=== PATIENT | male | born 1975 | race Caucasian/White ===

== ENCOUNTER 2022-12-30 12:41 | Inpatient (IN) | payer SELFPAY ==
[~2022-12-30] VITALS: Ht 180.3 cm; Wt 78.3 kg
[2022-12-30] MEDS ORDERED: fentaNYL INJECTION 100 MCG/2 ML VIAL IVP ONE (13:45)
--- NOTE | 2022-12-30 13:49 | ED Abdominal Pain ---
General Chief Complaint: Abdominal/GI Problems Stated Complaint: BACK PAIN Nursing Triage Note: PATIENT C/O RUQ AND MID BACK PAIN THAT STARTED LAST NIGHT WITH WORSENING THIS AM. PATIENT DENIES ANY FALLS OR INJURY TO BACK. PATIENT DENIES ANY NAUSEA OR VOMITING. PATIENT C/O PAIN WITH DEEP BREATH. PATIENT DENIES ANY Hx. OF BLOOD CLOTS. PATIENT STATES HE DOES HAVE A Hx. OF GERD, BUT DENIES TAKING ANY MEDICATION FOR THAT CURRENTLY. Source of Information: Patient Exam Limitations: No Limitations (CASTRO MILLER APRN) History of Present Illness Date Seen by Provider: Dec 30, 2022 Time Seen by Provider: 13:15 Initial Comments 47-year-old male presents to the ER with complaint of right upper quadrant abdominal pain and right flank pain starting last night before dinner. He reports the pain is worse when he takes a deep breath. Denies any injury to this area. Reports shortness of air due to having difficulty taking deep breaths. He denies fevers, chest pain, nausea, vomiting, dysuria. Last bowel movement was 3 to 4 days ago. Patient reports this is normal for him. He reports history of acid reflux, but states that he has not had issues with it for many years. He has not had any abdominal surgeries. (CASTRO MILLER APRN) Allergies and Home Medications Allergies Coded Allergies: No Known Drug Allergies (Unverified , 12/30/22) Patient Home Medication List Home Medication List Reviewed: Yes (CASTRO MILLER APRN) No Active Prescriptions or Reported Meds Review of Systems Review of Systems Constitutional: see HPI (CASTRO MILLER APRN) Past Wylodct-Szqepo-Llpsgx Hx Patient Social History Tobacco Use?: Yes Tobacco type used: Cigarettes Smoking Status: Current Everyday Smoker Use of E-Cig and/or Vaping dev: No Substance use?: No Alcohol Use?: No (CASTRO MILLER APRN) Past Medical History Surgery/Hospitalization HX: BKA-Lt. (CASTRO MILLER APRN) Physical Exam Vital Signs Capillary Refill : (CASTRO MILLER APRN) Height/Weight/BMI Height: '" Weight: lbs. oz. kg; 23.00 BMI Method: General Appearance: WD/WN, mild distress Neck: supple, normal inspection Respiratory: lungs clear, normal breath sounds, no respiratory distress, no accessory muscle use Cardiovascular: regular rate, rhythm Gastrointestinal: normal bowel sounds, soft, tenderness (Right upper quadrant), other (Positive Gill sign) Extremities: normal range of motion, normal inspection (Left below the knee amputation) Back: normal inspection, no vertebral tenderness; No CVA tenderness (R); CVA tenderness (L), other (No tenderness with palpation of the back) Neurologic/Psychiatric: alert, normal mood/affect Skin: normal color, warm/dry (CASTRO MILLER TIRE SETTER) Focused Exam Lactate Level 12/30/22 16:40: Lactic Acid Level 0.75 (KAYLIN FLOOD DO) Lactic Acid Level Laboratory Tests Test 12/30/22 16:40 Lactic Acid Level 0.75 MMOL/L (0.50-2.00) (KAYLIN FLOOD DO) Progress/Results/Core Measures Results/Orders Lab Results Laboratory Tests Test 12/30/22 13:40 12/30/22 16:09 12/30/22 16:40 Range/Units White Blood Count 27.8 H 4.3-11.0 10^3/uL Red Blood Count 5.47 4.30-5.52 10^6/uL Hemoglobin 14.9 13.3-17.7 g/dL Hematocrit 45 40-54 % Mean Corpuscular Volume 82 80-99 fL Mean Corpuscular Hemoglobin 27 25-34 pg Mean Corpuscular Hemoglobin Concent 33 32-36 g/dL Red Cell Distribution Width 14.3 10.0-14.5 % Platelet Count 311 130-400 10^3/uL Mean Platelet Volume 10.3 9.0-12.2 fL Immature Granulocyte % (Auto) 1 % Neutrophils (%) (Auto) 86 H 42-75 % Lymphocytes (%) (Auto) 8 L 12-44 % Monocytes (%) (Auto) 6 0-12 % Eosinophils (%) (Auto) 0 0-10 % Basophils (%) (Auto) 0 0-10 % Neutrophils # (Auto) 23.8 H 1.8-7.8 10^3/uL Lymphocytes # (Auto) 2.1 1.0-4.0 10^3/uL Monocytes # (Auto) 1.6 H 0.0-1.0 10^3/uL Eosinophils # (Auto) 0.0 0.0-0.3 10^3/uL Basophils # (Auto) 0.1 0.0-0.1 10^3/uL Immature Granulocyte # (Auto) 0.2 H 0.0-0.1 10^3/uL Neutrophils % (Manual) 84 % Lymphocytes % (Manual) 7 % Monocytes % (Manual) 6 % Band Neutrophils 3 % Blood Morphology Comment NORMAL D-Dimer 0.45 0.00-0.49 UG/ML Sodium Level 133 L 135-145 MMOL/L Potassium Level 4.2 3.6-5.0 MMOL/L Chloride Level 97 L 98-107 MMOL/L Carbon Dioxide Level 27 21-32 MMOL/L Anion Gap 9 5-14 MMOL/L Blood Urea Nitrogen 13 7-18 MG/DL Creatinine 1.01 0.60-1.30 MG/DL Estimat Glomerular Filtration Rate 93 BUN/Creatinine Ratio 13 Glucose Level 122 H 70-105 MG/DL Calcium Level 9.9 8.5-10.1 MG/DL Corrected Calcium 9.5 8.5-10.1 MG/DL Magnesium Level 1.9 1.6-2.4 MG/DL Total Bilirubin 1.1 H 0.1-1.0 MG/DL Aspartate Amino Transf (AST/SGOT) 21 5-34 U/L Alanine Aminotransferase (ALT/SGPT) 30 0-55 U/L Alkaline Phosphatase 121 40-136 U/L Troponin I < 0.028 <0.028 NG/ML B-Type Natriuretic Peptide 11.7 <100.0 PG/ML Total Protein 9.0 H 6.4-8.2 GM/DL Albumin 4.5 3.2-4.5 GM/DL Lipase 12 8-78 U/L Urine Color YELLOW Urine Clarity CLEAR Urine pH 6.0 5-9 Urine Specific [place] 1.020 1.016-1.022 Urine Protein 2+ H NEGATIVE Urine Glucose (UA) NEGATIVE NEGATIVE Urine Ketones NEGATIVE NEGATIVE Urine Nitrite NEGATIVE NEGATIVE Urine Bilirubin NEGATIVE NEGATIVE Urine Urobilinogen 1.0 < = 1.0 MG/DL Urine Leukocyte Esterase 1+ H NEGATIVE Urine RBC (Auto) 2+ H NEGATIVE Urine RBC 5-10 H /HPF Urine WBC 5-10 H /HPF Urine Squamous Epithelial Cells RARE /HPF Urine Crystals NONE /LPF Urine Bacteria TRACE /HPF Urine Casts NONE /LPF Urine Mucus NEGATIVE /LPF Urine Culture Indicated YES Lactic Acid Level 0.75 0.50-2.00 MMOL/L (KAYLIN FLOOD DO) Micro Results Microbiology 12/30/22 Blood Culture - Final, Complete Staphylococcus aureus See Comments 12/30/22 Blood Culture - Final, Complete Staphylococcus aureus See Comments 12/30/22 Urine Culture - Final, Complete Staphylococcus aureus Mixed Bacterial Pau (KAYLIN FLOOD DO) Blood Pressure Mean: 97 Progress Progress Note : Progress Note Patient seen and evaluated, resting in bed, mild distress. Based on exam and symptoms, work-up initiated including CBC, CMP, lipase, magnesium, D-dimer, UA, chest x-ray, ultrasound gallbladder. IV fluids and fentanyl ordered. 1500 labs, ultrasound, x-ray reviewed. CBC shows elevated WBC 27.8. Neutrophil elevated 23.8. CMP shows slightly decreased sodium 133, slightly decreased chloride 97, total bilirubin slightly elevated 1.1. AST and ALT normal. Total protein elevated 9.0. Lipase normal. D-dimer normal 0.45. Urinalysis shows 1+ leukocytes, 2+ RBCs, 5-10 WBCs, trace bacteria. Chest x-ray shows no definite acute abnormality, but does show pulmonary vascularity at the upper limits of normal. Gallbladder ultrasound shows contracted gallbladder likely due to nonfasting state , no cholelithiasis or biliary obstruction. Benign simple cyst in the upper pole of the right kidney. Patient still having significant pain, appears to be worse than when he arrived. Patient reports difficulty breathing due to pain. Dilaudid ordered. Troponin and BNP added on. CT angio chest, abdomen, and pelvis ordered. [address] of the chest shows area of consolidation in the right upper lobe likely pneumonia. Also shows multiple micronodular densities in the right upper lobe. They recommend 3-month follow-up. The aorta is normal. There is a large amount of air and stool throughout the colon likely due to constipation as reported by the patient. Also noted is a benign-appearing renal cyst. No renal or ureteral calculi noted. I called and spoke with Dr. Encarnacion due to patient's significant right upper quadrant pain and elevated white count. We agree that elevated white count and pain may be related to pneumonia rather than gallblad jill, but Dr. Encarnacion would like to see patient as an outpatient. Patient has required another dose of Dilaudid. We have been unable to control his pain. Due to uncontrolled pain, pneumonia and elevated white count, I called and spoke with Dr. Calero, hospitalist, for admission. She agrees to admit patient. She would like me to place admission orders. I have ordered azithromycin and Rocephin. I also ordered a second liter of IV fluids as well as Colace and a suppository for patient's constipation. Pain may be related to constipation, and narcotic pain medications may contribute to this. (CASTRO MILLER APRN) Initial ECG Impression Date: Dec 30, 2022 Initial ECG Impression Time: 15:10 Initial ECG Rate: 106 Initial ECG Rhythm: S.Tach Initial ECG Intervals: Normal Initial ECG Impression: Normal Initial ECG Comparisson: No Previous ECG Available (CASTRO MILLER APRN) Diagnostic Imaging Diagonstic Imaging: Xray Plain Films/CT/US/NM/MRI: chest Comments [facility], [place] NAME: HAWA ENAMORADO [facility] REC#: [id number] PT STATUS: REG ER : 1975 PHYSICIAN: CASTRO MILLER APRN ADMIT DATE: 12/30/22/ER Signed Date of Exam:12/30/22 CHEST 1 VIEW, AP/PA ONLY INDICATION: Chest pain. TECHNIQUE: Single AP view of chest is obtained. FINDINGS: Heart size is within normal limits. Pulmonary vascularity is at the upper limits of normal. There is no consolidation, pneumothorax or pleural fluid. IMPRESSION: No definite acute abnormality, although pulmonary vascularity is at the upper limits of normal. Dictated by: Dictated on workstation # [id number] Dict: 12/30/22 1402 Trans: 12/30/22 1434 [id number] Interpreted by: CESAR ROBERTS MD Electronically signed by: CESAR ROBERTS MD 12/30/22 1434 Diagonstic Imaging: Ultrasound Plain Films/CT/US/NM/MRI: abdomen Comments [facility], [facility] [place], [place] NAME: HAWA ENAMORADO [facility] REC#: [id number] PT STATUS: REG ER : 1975 PHYSICIAN: CASTRO MILLER APRN ADMIT DATE: 12/30/22/ER Signed Date of Exam:12/30/22 US GALLBLADDER [id number] PROCEDURE: US Gallbladder. TECHNIQUE: Multiple real-time grayscale images were obtained over the right upper quadrant in various projections. INDICATION: Right upper quadrant pain. COMPARISON: None available. FINDINGS: The liver is normal in size and echogenicity. There is no focal hepatic mass. The main portal vein is patent with antegrade flow. Gallbladder is contracted without stones or sludge. No pericholecystic fluid or significant gallbladder wall thickening. The common bile duct measures up to 0.5 cm in diameter. No intrahepatic biliary dilation. The visualized portions of the pancreas are normal. Portions of the head and tail are obscured by overlying bowel gas. The right kidney is normal in size. No hydronephrosis, shadowing calculi, or suspicious mass lesion. Benign anechoic cyst is present in the upper pole the right kidney measuring up to 6 cm. IMPRESSION: 1. Contracted gallbladder is likely due to nonfasting state. No cholelithiasis or biliary obstruction. 2. Benign simple cyst upper pole of the right kidney. Dictated by: Dictated on workstation # [id number] Dict: 12/30/225 Trans: 12/30/221455 [facility] [id number] Interpreted by: JAYME DOMINGO MD Electronically signed by: JAYME DOMINGO MD 12/30/221455 Diagonstic Imaging: CT Plain Films/CT/US/NM/MRI: chest, abdomen, pelvis Comments [facility], [place] NAME: HAWA ENAMORADO [facility] REC#: [id number] PT STATUS: REG ER : 1975 PHYSICIAN: CASTRO MILLER APRN ADMIT DATE: 12/30/22/ER Draft Date of Exam:12/30/22 CT ANGIO CHST/ABD/PELV W PROCEDURE: CT angiography of the chest with contrast and CT abdomen and pelvis with contrast. TECHNIQUE: Multiple contiguous axial images were obtained through the chest, abdomen and pelvis after administration of intravenous contrast. 3D MIP reconstructed CT angiography acquisitions of the aorta were then performed. Auto Exposure Controls were utilized during the CT exam to meet ALARA standards for radiation dose reduction. INDICATION: Right flank pain. Right upper quadrant abdominal pain. Shortness of air. Mid chest pain with radiation to the back. COMPARISON: None. FINDINGS: CTA CHEST: At the level of the pulmonary arterial trunk, the ascending thoracic aorta measures 3.8 cm and the descending thoracic aorta measures 2.4 cm. By NASCET criteria, there is no focal significant stenosis. No significant atherosclerotic disease is seen. There is no dissection. Pulmonary arteries are suboptimally opacified to assess for pulmonary emboli. Heart size is within normal limits. There is no large pericardial effusion. No pathologically enlarged or morphologically abnormal adenopathy is seen within the mediastinum, asuncion, nor axillae. Evaluation of the lung rojas is degraded by motion artifact. There is, however, a focal area of consolidation involving the posterolateral margins of the right upper lobe near the minor fissure. Multiple micronodular densities of the lateral margins of the right upper lobe are also identified. Largest of these measures 9 x 6 mm. Left upper lobe micronodule is also identified and measures 9 mm (image 49, series 2). No large effusion or pneumothorax is seen. Osseous structures show no acute abnormalities. No lytic or blastic bony lesions are seen. CT ABDOMEN: Large amount of air and stool is noted scattered throughout the colon. Small bowel loops are nondilated. Appendix is not well visualized, but there is no secondary evidence of acute appendicitis. Large, but otherwise benign-appearing right renal cyst is noted. Otherwise, the kidneys, adrenal glands, spleen, pancreas, and liver have a normal CT appearance. There is no loculated fluid collection, free fluid, or free air within the abdomen. No abnormal mesenteric or retroperitoneal adenopathy is seen. Indwelling IVC filter is also noted. Osseous structures show no acute abnormalities. CT PELVIS: Urinary bladder is unopacified. No calculi are seen within the urinary bladder. There is no loculated fluid collection, free fluid, or free air. No abnormal adenopathy is seen. Osseous structures show no acute abnormalities. IMPRESSION: 1. No acute abnormality of the thoracic aorta is identified. 2. Focal consolidation of the right upper lobe concerning for pneumonia. 3. Multiple micronodules in the bilateral upper lobes are also identified. Three-month follow-up is advised to ensure stability. 4. Large amount of air and stool throughout the colon. Please correlate for constipation. 5. No other acute abnormality is seen within the abdomen or pelvis. Dictated on workstation # [id number] Dict: 12/30/22 1611 Trans: 12/30/22 1630 [id number] Interpreted by: HEYDI GRIFFIN MD Electronically signed by: (CASTRO MILLER APRN) Departure Communication (Admissions) Time/Spoke to Admitting Phy: 16:44 Dr. Calero, hospitalist, see progress note. Time/Spoke to Consulting Phy: 16:40 Dr. Encarnacion, surgery, see progress note. (CASTRO MILLER APRN) Impression Primary Impression: Pneumonia Additional Impressions: Right upper quadrant abdominal pain Constipation Uncontrolled pain Disposition: ADMITTED INPATIENT Condition: Stable Admissions Decision to Admit Reason: Admit from ER (General) Decision to Admit/Date: Dec 30, 2022 Time/Decision to Admit Time: 16:40 (CASTRO MILLER APRN) Departure-Patient Inst. Referrals: NO,LOCAL PHYSICIAN (PCP/Family) Primary Care Physician Scripts No Active Prescriptions or Reported Meds ATTENDING PHYSICIAN NOTE: I WAS PHYSICALLY PRESENT ER PHYSICIAN, BUT I WAS NOT INVOLVED IN ANY DECISION MAKING OR ANY CARE OF THIS PATIENT, AND I AM NOT COLLABORATING PHYSICIAN. (KAYLIN FLOOD DO) CASTRO MILLER APRN Dec 30, 2022 13:49 KAYLIN FLOOD DO Jan 09, 2023 05:47
[2022-12-30 13:54] LABS: BASOPHILS # (AUTO) 0.1 10^3/uL (0.0-0.1); BASOPHILS % (AUTO) 0 % (0-10); EOSINOPHILS % (AUTO) 0 % (0-10); HEMATOCRIT 45 % (40-54); HEMOGLOBIN 14.9 g/dL (13.3-17.7); LYMPHOCYTES # (AUTO) 2.1 10^3/uL (1.0-4.0); LYMPHOCYTES % (AUTO) 8 % (12-44); MEAN CORPUSCULAR HEMOGLOBIN 27 pg (25-34); MEAN CORPUSCULAR HGB CONC 33 g/dL (32-36); MEAN CORPUSCULAR VOLUME 82 fL (80-99); MEAN PLATELET VOLUME 10.3 fL (9.0-12.2); MONOCYTES # (AUTO) 1.6 10^3/uL (0.0-1.0); MONOCYTES % (AUTO) 6 % (0-12); NEUTROPHILS # (AUTO) 23.8 10^3/uL (1.8-7.8); NEUTROPHILS % (AUTO) 86 % (42-75); PLATELET COUNT 311 10^3/uL (130-400); WHITE BLOOD COUNT 27.8 10^3/uL (4.3-11.0)
[2022-12-30] MEDS ORDERED: NS IV 1000 ML 1,000 ML IV SCH ×2 (14:00→17:00)
[2022-12-30 14:02] LABS: ALBUMIN 4.5 GM/DL (3.2-4.5)
[2022-12-30 14:03] LABS: POTASSIUM 4.2 MMOL/L (3.6-5.0)
[2022-12-30 14:04] LABS: CALCIUM 9.9 MG/DL (8.5-10.1)
--- NOTE | 2022-12-30 14:06 | Diagnostic Imaging Report ---
INDICATION: Chest pain. TECHNIQUE: Single AP view of chest is obtained. FINDINGS: Heart size is within normal limits. Pulmonary vascularity is at the upper limits of normal. There is no consolidation, pneumothorax or pleural fluid. IMPRESSION: No definite acute abnormality, although pulmonary vascularity is at the upper limits of normal. Dictated by: Dictated on workstation # [id number]
[2022-12-30 14:07] LABS: BILIRUBIN,TOTAL 1.1 MG/DL (0.1-1.0)
[2022-12-30 14:09] LABS: CREATININE SERUM 1.01 MG/DL (0.60-1.30)
[2022-12-30 14:11] LABS: MAGNESIUM 1.9 MG/DL (1.6-2.4)
[2022-12-30 14:31] LABS: NEUTROPHILS % (MANUAL) 84 %
[2022-12-30 14:32] LABS: BAND NEUTROPHILS 3 %; LYMPHOCYTES % (MANUAL) 7 %; MONOCYTES % (MANUAL) 6 %; RBC MORPH NORMAL
--- NOTE | 2022-12-30 14:58 | Diagnostic Imaging Report ---
PROCEDURE: US Gallbladder. TECHNIQUE: Multiple real-time grayscale images were obtained over the right upper quadrant in various projections. INDICATION: Right upper quadrant pain. COMPARISON: None available. FINDINGS: The liver is normal in size and echogenicity. There is no focal hepatic mass. The main portal vein is patent with antegrade flow. Gallbladder is contracted without stones or sludge. No pericholecystic fluid or significant gallbladder wall thickening. The common bile duct measures up to 0.5 cm in diameter. No intrahepatic biliary dilation. The visualized portions of the pancreas are normal. Portions of the head and tail are obscured by overlying bowel gas. The right kidney is normal in size. No hydronephrosis, shadowing calculi, or suspicious mass lesion. Benign anechoic cyst is present in the upper pole the right kidney measuring up to 6 cm. IMPRESSION: 1. Contracted gallbladder is likely due to nonfasting state. No cholelithiasis or biliary obstruction. 2. Benign simple cyst upper pole of the right kidney. Dictated by: Dictated on workstation # [id number]
[2022-12-30] MEDS ORDERED: HYDROmorphone INJECTION 2 MG/ML VIAL IV ONE ×3 (15:00→17:45)
[2022-12-30] MEDS ORDERED: IOHEXOL 350 MG/ML 100 ML (OMNIPAQUE 350) VIAL IV ONE (15:15)
[2022-12-30] MEDS ORDERED: NS 100 ML (IVPB) BAG IV ONE (15:15)
[2022-12-30 16:24] LABS: BACTERIA,URINE TRACE /HPF; BILIRUBIN,URINE NEGATIVE (NEGATIVE); CLARITY,URINE CLEAR; COLOR,URINE YELLOW; GLUCOSE, URINE (UA) NEGATIVE (NEGATIVE); KETONES,URINE NEGATIVE (NEGATIVE); LEUKOCYTE ESTERASE ,URINE 1+ (NEGATIVE); NITRITE,URINE NEGATIVE (NEGATIVE); PROTEIN,URINE 2+ (NEGATIVE); SQUAMOUS EPITHELIAL CELL,UR RARE /HPF
--- NOTE | 2022-12-30 16:30 | Diagnostic Imaging Report ---
PROCEDURE: CT angiography of the chest with contrast and CT abdomen and pelvis with contrast. TECHNIQUE: Multiple contiguous axial images were obtained through the chest, abdomen and pelvis after administration of intravenous contrast. 3D MIP reconstructed CT angiography acquisitions of the aorta were then performed. Auto Exposure Controls were utilized during the CT exam to meet ALARA standards for radiation dose reduction. INDICATION: Right flank pain. Right upper quadrant abdominal pain. Shortness of air. Mid chest pain with radiation to the back. COMPARISON: None. FINDINGS: CTA CHEST: At the level of the pulmonary arterial trunk, the ascending thoracic aorta measures 3.8 cm and the descending thoracic aorta measures 2.4 cm. By NASCET criteria, there is no focal significant stenosis. No significant atherosclerotic disease is seen. There is no dissection. Pulmonary arteries are suboptimally opacified to assess for pulmonary emboli. Heart size is within normal limits. There is no large pericardial effusion. No pathologically enlarged or morphologically abnormal adenopathy is seen within the mediastinum, asuncion, nor axillae. Evaluation of the lung rojas is degraded by motion artifact. There is, however, a focal area of consolidation involving the posterolateral margins of the right upper lobe near the minor fissure. Multiple micronodular densities of the lateral margins of the right upper lobe are also identified. Largest of these measures 9 x 6 mm. Left upper lobe micronodule is also identified and measures 9 mm (image 49, series 2). No large effusion or pneumothorax is seen. Osseous structures show no acute abnormalities. No lytic or blastic bony lesions are seen. CT ABDOMEN: Large amount of air and stool is noted scattered throughout the colon. Small bowel loops are nondilated. Appendix is not well visualized, but there is no secondary evidence of acute appendicitis. Large, but otherwise benign-appearing right renal cyst is noted. Otherwise, the kidneys, adrenal glands, spleen, pancreas, and liver have a normal CT appearance. There is no loculated fluid collection, free fluid, or free air within the abdomen. No abnormal mesenteric or retroperitoneal adenopathy is seen. Indwelling IVC filter is also noted. Osseous structures show no acute abnormalities. CT PELVIS: Urinary bladder is unopacified. No calculi are seen within the urinary bladder. There is no loculated fluid collection, free fluid, or free air. No abnormal adenopathy is seen. Osseous structures show no acute abnormalities. IMPRESSION: 1. No acute abnormality of the thoracic aorta is identified. 2. Focal consolidation of the right upper lobe concerning for pneumonia. 3. Multiple micronodules in the bilateral upper lobes are also identified. Three-month follow-up is advised to ensure stability. 4. Large amount of air and stool throughout the colon. Please correlate for constipation. 5. No other acute abnormality is seen within the abdomen or pelvis. Dictated by: Dictated on workstation # [id number]
[2022-12-30] MEDS ORDERED: cefTRIAXone IV/IM 1,000 MG in NS (IVPB) 50 ML 50 ML IV ONE (17:00)
[2022-12-30] MEDS ORDERED: BISACODYL 10 MG SUPPOSITORY PR ONE (17:00)
[2022-12-30] MEDS ORDERED: AZITHROMYCIN INJECTION 500 MG in NS (IVPB) 250 ML 250 ML IV ONE (17:00)
[2022-12-30] MEDS ORDERED: DOCUSATE SODIUM 100 MG CAPSULE PO ONE (17:00)
[2022-12-30] MEDS ORDERED: KETOROLAC INJ 15 MG/ML VIAL IVP ONE (17:45)
[2022-12-30] MEDS ORDERED: ONDANSETRON INJECTION 4 MG/2 ML (SDV) IV PRN (18:15)
[2022-12-30] MEDS: NS IV 1000 ML 1,000 ML IV SCH (18:25)
[2022-12-30 18:26] VITALS: BP 97/74
[2022-12-30 19:19] VITALS: BP 97/74
[2022-12-30] MEDS ORDERED: RT-ALBUTEROL SULF 2.5 MG/3 ML PRE-MIX VIAL INH PRN (19:45)
[2022-12-30 19:51] VITALS: BP 102/59
[2022-12-30] MEDS: DOCUSATE SODIUM 100 MG CAPSULE PO SCH (21:02)
[2022-12-31] VITALS: BP 104/68
[2022-12-31] MEDS: fentaNYL INJECTION 100 MCG/2 ML VIAL IV PRN ×6 (00:10→22:06)
[2022-12-31] MEDS: HYDROmorphone INJECTION 2 MG/ML VIAL IV PRN ×5 (02:01→19:57)
[2022-12-31 04:00] VITALS: BP 102/60
[2022-12-31] MEDS: NS IV 1000 ML 1,000 ML IV SCH ×2 (04:06→14:51)
--- NOTE | 2022-12-31 07:13 | Consultation - Surgery ---
SUDHAKAR PÉREZ 12/31/22 0713: History of Present Illness History of Present Illness Patient Consulted On(raz/time) 12/31/22 07:00 Date Seen by Provider: Dec 31, 2022 Time Seen by Provider: 07:00 History of Present Illness Patient is a 47 year old male with longstanding IV methamphetamine abuse who came into the [facility] ED yesterday with a chief complaint of RUQ and right sided flank pain worse with inspiration. The patient also had not had a BM in 3- 4 days. Labs in the ED were significant for an elevated WBC of 27.8 with neutrophil count of 23.8 and sodium of 133. RUQ ultrasound showed a contracted gallbladder (likely secondary to a non-fasting state), a benign appearing right renal cyst. CT showed a focal consolidation in the upper lobe of the right lung and there were large amounts of air and stool present in the colon, aligning with the patients ongoing constipation. Blood cultures significant for staph aureus bacteremia. Echo was performed that showed normal EF and mild tricuspid valve regurgitation as well as elevated pulmonary artery pressure. This morning when I spoke with him he appeared uncomfortable and is still having pain when he takes a deep breath, though he says his current pain regimen is helping. He still has not had a BM. Otherwise he denies any other symptoms. Allergies and Home Medications Allergies Coded Allergies: No Known Drug Allergies (Unverified , 12/30/22) Patient Home Medication List No Active Prescriptions or Reported Meds Past Oadkefo-Jobmch-Mypsyp Hx Patient Social History Smoking Status: Current Everyday Smoker Alcohol Use?: No Review of Systems-General Constitutional: No fever, No malaise EENTM: No hoarseness, No nose congestion Respiratory: No cough, No hemoptysis Gastrointestinal: RUQ, constipation; No nausea, No vomiting Genitourinary: No dysuria, No hematuria Musculoskeletal: No back pain, No muscle pain Skin: No change in color, No dryness Psychiatric/Neurological: Denies Anxiety, Denies Depressed Physical Exam-General Problems Physical Exam Vital Signs Vital Signs - First Documented 12/30/22 12/30/22 12/30/22 12/30/22 13:26 16:40 17:37 19:19 Temp 36.9 Pulse 99 Resp 16 B/P (MAP) 124/83 (97) Pulse Ox 96 O2 Delivery Room Air O2 Flow Rate 2.00 FiO2 21 Capillary Refill : Less Than 3 Seconds General Appearance: mild distress Respiratory: no respiratory distress, wheezing, expiration Cardiovascular: regular rate, rhythm, no murmur Peripheral Pulses: 2+ Radial Pulses (R), 2+ Radial Pulses (L) Gastrointestinal: non tender, soft Extremities: no pedal edema Skin: normal color, warm/dry Data Review Labs Laboratory Tests 12/30/22 13:40: White Blood Count 27.8H, Red Blood Count 5.47, Hemoglobin 14.9, Hematocrit 45, Mean Corpuscular Volume 82, Mean Corpuscular Hemoglobin 27, Mean Corpuscular Hemoglobin Concent 33, Red Cell Distribution Width 14.3, Platelet Count 311, Mean Platelet Volume 10.3, Immature Granulocyte % (Auto) 1, Neutrophils (%) (Auto) 86H, Lymphocytes (%) (Auto) 8L, Monocytes (%) (Auto) 6, Eosinophils (%) (Auto) 0, Basophils (%) (Auto) 0, Neutrophils # (Auto) 23.8H, Lymphocytes # (Auto) 2.1, Monocytes # (Auto) 1.6H, Eosinophils # (Auto) 0.0, Basophils # (Auto) 0.1, Immature Granulocyte # (Auto) 0.2H, Neutrophils % (Manual) 84, Lymphocytes % (Manual) 7, Monocytes % (Manual) 6, Band Neutrophils 3, Blood Morphology Comment NORMAL, D-Dimer 0.45, Sodium Level 133L, Potassium Level 4.2, Chloride Level 97L, Carbon Dioxide Level 27, Anion Gap 9, Blood Urea Nitrogen 13, Creatinine 1.01, Estimat Glomerular Filtration Rate 93, BUN/Creatinine Ratio 13, Glucose Level 122H, Calcium Level 9.9, Corrected Calcium 9.5, Magnesium Level 1.9, Total Bilirubin 1.1H, Aspartate Amino Transf (AST/SGOT) 21, Alanine Aminotransferase (ALT/SGPT) 30, Alkaline Phosphatase 121, Troponin I < 0.028, B- Type Natriuretic Peptide 11.7, Total Protein 9.0H, Albumin 4.5, Lipase 12 12/30/22 16:09: Urine Color YELLOW, Urine Clarity CLEAR, Urine pH 6.0, Urine Specific [place] 1.020, Urine Protein 2+H, Urine Glucose (UA) NEGATIVE, Urine Ketones NEGATIVE, Urine Nitrite NEGATIVE, Urine Bilirubin NEGATIVE, Urine Urobilinogen 1.0, Urine Leukocyte Esterase 1+H, Urine RBC (Auto) 2+H, Urine RBC 5-10H, Urine WBC 5-10H, Urine Squamous Epithelial Cells RARE, Urine Crystals NONE, Urine Bacteria TRACE, Urine Casts NONE, Urine Mucus NEGATIVE, Urine Culture Indicated YES 12/30/22 16:40: Lactic Acid Level 0.75 Assessment/Plan Assessment/Plan Assessment/Plan Constipation Right upper quadrant pain -likely secondary to combination of pneumonia and constipation -continue pain regimen, consider discontinuing opioid agonists due to ongoing constipation -continue stool softeners/laxatives -continue IV fluids -monitor for change in pain and for BM -HIDA scan Pneumonia Staph Aureus Bacteremia NANCY ENCARNACION DO 12/31/22 1822: History of Present Illness History of Present Illness History of Present Illness Patient is a 47 year old male with ruq abdominal pain. Not felt well for several days. Cough that is productive. Breathing and cough makes worse. Recent history of meth use, Injects. Patient with constipation. WBC at 27.8. Had u/s with contracted gallbladder and cyst on kidney right. CTA chest abd/pelvis: 1. No acute abnormality of the thoracic aorta is identified. 2. Focal consolidation of the right upper lobe concerning for pneumonia. 3. Multiple micronodules in the bilateral upper lobes are also identified. Three-month follow-up is advised to ensure stability. 4. Large amount of air and stool throughout the colon. Please correlate for constipation. 5. No other acute abnormality is seen within the abdomen or pelvis. Allergies and Home Medications Allergies Coded Allergies: No Known Drug Allergies (Unverified , 12/30/22) Patient Home Medication List Home Medication List Reviewed: Yes No Active Prescriptions or Reported Meds Past Tpzutmr-Mnipae-Xuauvx Hx Patient Social History Smoking Status: Current Everyday Smoker Substance type: Methamphetamine Surgeries History of Surgeries: Yes (left bka) Respiratory History of Respiratory Disorde: No Cardiovascular History of Cardiac Disorders: No Neurological History of Neurological Disord: No Genitourinary History of Genitourinary Disor: No Gastrointestinal History of Gastrointestinal Di: No Musculoskeletal History of Musculoskeletal Dis: No Endocrine History of Endocrine Disorders: No HEENT History of HEENT Disorders: No Cancer History of Cancer: No Psychosocial History of Psychiatric Problem: No Integumentary History of Skin or Integumenta: No Reviewed Nursing Assessment Reviewed/Agree w Nursing PMH: Yes Family Medical History Significant Family History: No Pertinent Family Hx Review of Systems-General Constitutional: No fever, No malaise EENTM: No blurred vision, No double vision Respiratory: cough; No hemoptysis Gastrointestinal: RUQ, abdominal pain (RUQ), constipation; No nausea, No vomiting Genitourinary: No dysuria, No hematuria Musculoskeletal: No back pain, No joint pain Skin: No change in color, No change in hair/nails Psychiatric/Neurological: Denies Anxiety, Denies Depressed All Other Systems Reviewed Negative Unless Noted: Yes (Negative excepted noted.) Physical Exam-General Problems Physical Exam General Appearance: WD/WN, no apparent distress (anxious slightly) HEENT: PERRL/EOMI, normal ENT inspection Neck: non-tender, supple Respiratory: chest non-tender, no respiratory distress, no accessory muscle use Cardiovascular: no JVD, tachycardia Gastrointestinal: non tender, soft Rectal: deferred Back: normal inspection, no CVA tenderness Extremities: non-tender, no pedal edema Neurologic/Psychiatric: alert, normal mood/affect, oriented x 3 Skin: normal color, warm/dry Lymphatic: no adenopathy Assessment/Plan Assessment/Plan Assessment/Plan ruq abdominal pain right upper lobe pneumonia constipation staph aureus bacteremita methamphetamine use. antibiotics u/s with gb contracted no gall stones or pericholecystic fluid gallbladder may not be source. Could order HIDA scan to further evaluate in future. pain may be related to constipation and pneumonia. Supervisory-Addendum Brief Verification & Attestation Participated in pt care: history, MDM, physical Personally performed: exam, history, MDM, supervision of care Care discussed with: Medical Student Procedures: n/a Results interpretation: Verified all documentation Verification and Attestation of Medical Student E/M Service A medical student performed and documented this service in my presence. I reviewed and verified all information documented by the medical student and made modifications to such information, when appropriate. I personally performed the physical exam and medical decision making. Nancy Encarnacion, Dec 31, 2022,18:31 SUDHAKAR PÉREZ Dec 31, 2022 07:13 NANCY ENCARNACION DO Dec 31, 2022 18:22
[2022-12-31 07:31] VITALS: BP 105/65
[2022-12-31] MEDS: KETOROLAC INJ 15 MG/ML VIAL IV PRN ×2 (07:46→14:51)
[2022-12-31 07:50] LABS: BASOPHILS # (AUTO) 0.1 10^3/uL (0.0-0.1); BASOPHILS % (AUTO) 0 % (0-10); EOSINOPHILS % (AUTO) 0 % (0-10); HEMATOCRIT 40 % (40-54); HEMOGLOBIN 12.8 g/dL (13.3-17.7); LYMPHOCYTES # (AUTO) 2.1 10^3/uL (1.0-4.0); LYMPHOCYTES % (AUTO) 8 % (12-44); MEAN CORPUSCULAR HEMOGLOBIN 27 pg (25-34); MEAN CORPUSCULAR HGB CONC 32 g/dL (32-36); MEAN CORPUSCULAR VOLUME 85 fL (80-99); MEAN PLATELET VOLUME 10.8 fL (9.0-12.2); MONOCYTES # (AUTO) 1.5 10^3/uL (0.0-1.0); MONOCYTES % (AUTO) 5 % (0-12); NEUTROPHILS # (AUTO) 24.1 10^3/uL (1.8-7.8); NEUTROPHILS % (AUTO) 86 % (42-75); PLATELET COUNT 252 10^3/uL (130-400); WHITE BLOOD COUNT 27.9 10^3/uL (4.3-11.0)
[2022-12-31 07:56] LABS: POTASSIUM 4.4 MMOL/L (3.6-5.0)
[2022-12-31 07:58] LABS: CALCIUM 8.7 MG/DL (8.5-10.1)
[2022-12-31 08:02] LABS: CREATININE SERUM 0.85 MG/DL (0.60-1.30)
[2022-12-31] MEDS: DOCUSATE SODIUM 100 MG CAPSULE PO SCH ×2 (08:36→20:57)
[2022-12-31] MEDS ORDERED: VANCOMYCIN INJECTION 0.1 MG in NS (IVPB) 250 ML 250 ML IV SCH (09:45)
[2022-12-31] MEDS ORDERED: VANCOMYCIN 1500MG/300ML PREMIX IV ONE (10:00)
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
[2022-12-31 11:34] VITALS: BP 96/62
--- NOTE | 2022-12-31 13:21 | Physical Therapy Progress Note ---
Therapy Progress Note Patient declined the need for PT at this time. Patient reports he is independent and up in his w/c. No skilled PT indicated. MARGAUX LEMOS PT Dec 31, 2022 13:21
[2022-12-31 16:38] VITALS: BP 101/58
[2022-12-31] MEDS: cefTRIAXone IV/IM 1,000 MG in NS (IVPB) 50 ML 50 ML IV SCH (17:01)
[2022-12-31] MEDS: AZITHROMYCIN 250 MG TABLET PO SCH (17:01)
[2022-12-31 19:19] VITALS: BP 112/70
[2022-12-31] MEDS: VANCOMYCIN 1250 MG/NS 250 ML PREMIX IV SCH (20:48)
[2022-12-31] MEDS ORDERED: VANCOMYCIN 1 GM/NS 250 ML IVPB IV SCH ×2 (21:00)
[2023-01-01] VITALS (7 sets, daily range): BP systolic 102–147; BP diastolic 54–87
[2023-01-01] MEDS: NS IV 1000 ML 1,000 ML IV SCH ×3 (00:16→16:22)
[2023-01-01] MEDS: HYDROmorphone INJECTION 2 MG/ML VIAL IV PRN ×4 (03:17→20:17)
[2023-01-01 06:51] LABS: HEMATOCRIT 38 % (40-54); HEMOGLOBIN 12.1 g/dL (13.3-17.7); MEAN CORPUSCULAR HEMOGLOBIN 27 pg (25-34); MEAN CORPUSCULAR HGB CONC 32 g/dL (32-36); MEAN CORPUSCULAR VOLUME 85 fL (80-99); MEAN PLATELET VOLUME 10.5 fL (9.0-12.2); PLATELET COUNT 245 10^3/uL (130-400); WHITE BLOOD COUNT 18.1 10^3/uL (4.3-11.0)
[2023-01-01 06:55] LABS: POTASSIUM 3.9 MMOL/L (3.6-5.0)
[2023-01-01 06:56] LABS: CALCIUM 8.4 MG/DL (8.5-10.1)
[2023-01-01 07:00] LABS: CREATININE SERUM 0.76 MG/DL (0.60-1.30)
[2023-01-01] MEDS: fentaNYL INJECTION 100 MCG/2 ML VIAL IV PRN ×3 (07:48→23:39)
--- NOTE | 2023-01-01 07:52 | Progress Note - Surgery ---
AGUILAR KENNEDY 01/01/23 0752: Subjective Date Seen by a Provider: Jan 01, 2023 Time Seen by a Provider: 07:20 Subjective/Events-last exam Pt is laying in bed and his only complaint is the RUQ abdominal pain that he states has been constant and unrelieved by pain medication. No nausea or vomiting. Tolerating food and drink. Still constipated day 6. WBC down to 18.1 from 27.8. Review of Systems General: No Chills, No Night Sweats HEENT: No Head Aches, No Visual Changes Pulmonary: No Dyspnea, No Cough Cardiovascular: No: Chest Pain, Palpitations Gastrointestinal: Abdominal Pain (ruq), Constipation; No: Nausea, Vomiting Genitourinary: No Dysuria, No Frequency Musculoskeletal: No: neck pain, shoulder pain Neurological: No: Weakness, Numbness Focused Exam Lactate Level 12/30/22 16:40: Lactic Acid Level 0.75 Objective Exam Vital Signs Date Time Temp Pulse Resp B/P (MAP) Pulse Ox O2 Delivery O2 Flow Rate FiO2 01/01/23 07:39 36.7 88 18 107/54 (71) 91 Nasal Cannula 2.00 01/01/23 04:55 37.0 81 14 102/64 (77) 93 Room Air 01/01/23 01:00 106 01/01/23 00:13 36.9 87 18 110/62 (78) 94 Room Air 12/31/22 20:30 Room Air 12/31/22 19:19 37.5 95 18 112/70 (84) 93 Room Air 12/31/22 19:00 94 12/31/22 16:38 36.5 69 16 101/58 (72) 92 Room Air 12/31/22 13:00 99 12/31/22 11:34 36.9 95 20 96/62 (73) 93 Room Air 12/31/22 08:00 Room Air I & O 01/01/23 07:00 Intake Total 3350 ml Output Total 1100 ml Balance 2250 ml Capillary Refill : Less Than 3 Seconds General Appearance: No Apparent Distress, Anxious HEENT: TMs Normal, Normal ENT Inspection Neck: Full Range of Motion, Normal Inspection, Non Tender Respiratory: Chest Non Tender, No Accessory Muscle Use, No Respiratory Distress, Crackles, Decreased Breath Sounds Cardiovascular: Regular Rate, Rhythm, No JVD, No Murmur, Normal Peripheral Pulses Peripheral Pulses: 2+ Radial Pulses (R), 2+ Radial Pulses (L) Gastrointestinal: non tender, soft Extremity: Normal Capillary Refill, Normal Inspection, Non Tender, No Calf Tenderness, No Pedal Edema Neurologic/Psychiatric: Alert, Oriented x3, No Motor/Sensory Deficits, Normal Mood/Affect Skin: Normal Color, Warm/Dry Lymphatic: No Adenopathy Results Lab Laboratory Tests 01/01/23 06:39: White Blood Count 18.1H, Red Blood Count 4.49, Hemoglobin 12.1L, Hematocrit 38L, Mean Corpuscular Volume 85, Mean Corpuscular Hemoglobin 27, Mean Corpuscular Hemoglobin Concent 32, Red Cell Distribution Width 14.6H, Platelet Count 245, Mean Platelet Volume 10.5, Sodium Level 133L, Potassium Level 3.9, Chloride Level 105, Carbon Dioxide Level 22, Anion Gap 6, Blood Urea Nitrogen 10, Creatinine 0.76, Estimat Glomerular Filtration Rate 112, BUN/Creatinine Ratio 13, Glucose Level 98, Calcium Level 8.4L Microbiology 12/30/22 Blood Culture - Preliminary, Resulted Probable Staph Aureus See Comments 12/30/22 Urine Culture - Preliminary, Resulted Staphylococcus aureus Assessment/Plan Assessment/Plan Assessment/Plan ruq abdominal pain right upper lobe pneumonia constipation, day 6 staph aureus bacteremita methamphetamine use. antibiotics pain medication continue miralax and docusate for constipation. Increase miralax dose NANCY ENCARNACION DO 01/01/231941: Subjective Subjective/Events-last exam Patient constipated. ABdominal pain different area of abdomen. Cough and working on breathing. WBC down some today. Tolerating diet. Denies n/v fever s weats chills shortness of breath or chest pain at this time. Objective Exam General Appearance: No Apparent Distress, Anxious HEENT: PERRL/EOMI, Normal ENT Inspection Neck: Normal Inspection, Non Tender Respiratory: Chest Non Tender, No Accessory Muscle Use Cardiovascular: Regular Rate, Rhythm, No JVD Gastrointestinal: soft, tenderness (random areas of tenderness on exam) Extremity: Non Tender, No Calf Tenderness, Other (left bka) Neurologic/Psychiatric: Alert, Oriented x3 Skin: Normal Color, Warm/Dry Lymphatic: No Adenopathy Assessment/Plan Assessment/Plan Assessment/Plan ruq abdominal pain right upper lobe pneumonia constipation staph aureus bacteremita methamphetamine use. add MOM to help with constipation continue abx pain control. see if MOM helps use incentive spirometer. Supervisory-Addendum Brief Verification & Attestation Participated in pt care: history, MDM, physical Personally performed: exam, history, MDM, supervision of care Care discussed with: Medical Student Procedures: n/a Results interpretation: Verified all documentation Verification and Attestation of Medical Student E/M Service A medical student performed and documented this service in my presence. I reviewed and verified all information documented by the medical student and made modifications to such information, when appropriate. I personally performed the physical exam and medical decision making. Nancy Encarnacion, Jan 01, 2023,19:41 AGUILAR KENNEDY Jan 01, 2023 07:52 NANCY ENCARNACION DO Jan 01, 2023 19:42
[2023-01-01] MEDS: AZITHROMYCIN 250 MG TABLET PO SCH (09:26)
[2023-01-01] MEDS: DOCUSATE SODIUM 100 MG CAPSULE PO SCH ×2 (09:26→20:17)
[2023-01-01] MEDS: VANCOMYCIN 1250 MG/NS 250 ML PREMIX IV SCH ×2 (09:26→21:38)
[2023-01-01] MEDS ORDERED: MAGNESIUM CITRATE 300 ML BTL PO ONE (09:30)
[2023-01-01] MEDS ORDERED: BISACODYL 10 MG SUPPOSITORY PR PRN (09:30)
--- NOTE | 2023-01-01 10:07 | Progress Note - Hospitalist ---
YANI HOWELL 01/01/23 1007: Subjective HPI/CC On Admission Date Seen by Provider: Jan 01, 2023 Time Seen by Provider: 10:02 Pt is a 47 y/o male who presented to the ER yesterday by his cousin with back/R flank pain that gradually moved into the RUQ. He states that his pain started the day before and that it worsened in the morning to the point that it was a constant pain. He states that his pain worsens when taking a deep breath and it is very intense when he coughs. He reports a mostly nonproductive, infrequent cough although he was able to produce some phelgm last night (unsure what color). He denies any trauma to the area. Denies nausea or vomiting or any hx of blood clots. Hx of GERD and does not currently take any meds for it. Last BM was 5 days ago which he states is normal for him, he has long struggled with constipation. Denies any prior abd surgeries. He is a current tobacco smoker (alternating how much 2ppd-1 ppd to a few cigarettes per day) since the age of 16. 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 Subjective/Events-last exam Pt reports that he continues to have intense abdominal pain, worse in the RUQ. States that he still has not had a BM which is day 6 since he has had one now. Feels very distended. Reports that his breathing has felt less labored although he is still coughing infrequently and producing a larsen/brown phelgm. He notes teodoro t his appetite has been fine and he continues to have a normal diet without any increase in his pain associated with eating food. He states that he thinks he is not peeing much and when he does, his urine is a dark brown color. UO is good. Focused Exam Lactate Level 12/30/22 16:40: Lactic Acid Level 0.75 Objective Exam Vital Signs Vital Signs Date Time Temp Pulse Resp B/P (MAP) Pulse Ox O2 Delivery O2 Flow Rate FiO2 01/01/23 07:39 36.7 88 18 107/54 (71) 91 Nasal Cannula 2.00 12/30/22 19:19 21 Capillary Refill : Less Than 3 Seconds General Appearance: No Apparent Distress, Anxious HEENT: PERRL/EOMI, Normal ENT Inspection Neck: Non Tender, Supple Respiratory: Chest Non Tender, No Respiratory Distress, Crackles Cardiovascular: Regular Rate, Rhythm, No Murmur, Normal Peripheral Pulses Gastrointestinal: Abnormal Bowel Sounds (Hypoactive), Distended, Tenderness (RUQ is the worst area but diffusely tender to palpation) Back: Normal Inspection, No CVA Tenderness Extremity: Non Tender, No Pedal Edema, Other (L BKA) Neurologic/Psychiatric: Alert, Oriented x3, No Motor/Sensory Deficits, Normal Mood/Affect Skin: Normal Color, Warm/Dry Results/Procedures Lab Laboratory Tests 01/01/23 06:39 Patient resulted labs reviewed. Assessment/Plan Assessment and Plan Assess & Plan/Chief Complaint Sepsis, staph bacteremia - WBC dropped from 27.9 yesterday to 18.1 today - Continue vancomycin 1250 mg q12 hrs IV - Echo yest with mild MR and TR. Normal EF - LESLIE tomorrow - Cardiology consulted, appreciated recommendations Pneumonia - Continue azithryomycin 500 mg IV/d - Continue ceftriazone 1000 mg IV/d - Continue albuterol sulfate 2.5 inhaled q 4 hrs PRN Constipation - Continue polyethylene glycol and docusate - Add senna 8.6 mg PO PRN, mag citrate, and bisacodyl suppository 10 mg PRN - Continue hydromorphone 0.5 mg IV q1 hrs PRN, fentanyl 75 mcg IV PRN q2 hrs for adequate pain control - HIDA scan - General surgery following, appreciate recommendations GORDO CALERO MD 01/01/23 1135: Assessment/Plan Assessment and Plan Assess & Plan/Chief Complaint Pt reports persistent abd pain. Still no BM. WBC improving. No fever. No complaints other than abd pain and states he just feels constipated. Discussed with Dr Encarnacion who recommends mag citrate. Added prn senna and suppository as well. LESLIE tomorrow. Will repeat blood cultures to see if he has cleared the infection. Continue IV abx. Supervisory-Addendum Brief Verification & Attestation Participated in pt care: history, MDM, physical Personally performed: exam, history, MDM, supervision of care Care discussed with: Medical Student Procedures: n/a Results interpretation: Verified all documentation Verification and Attestation of Medical Student E/M Service A medical student performed and documented this service in my presence. I reviewed and verified all information documented by the medical student and made modifications to such information, when appropriate. I personally performed the physical exam and medical decision making. Gordo Calero, Jan 01, 2023,11:23 YANI HOWELL Jan 01, 2023 10:07 GORDO CALERO MD Jan 01, 2023 11:35
--- NOTE | 2023-01-01 10:18 | Consultation-Cardiology ---
HPI-Cardiology Cardiology Consultation Date of Consultation 01/01/23 Date of Admission Time Seen by Provider: 07:20 HPI Patient is a 47 y/o male presented to the ER with complaints of RUQ pain and dyspnea for the past 4 days. Work up done showing pneumonia, constipation and sepsis with staph aureaus bacteremia. Patient admits to IV meth use and there is concern for possible bacterial endocarditis. Denies any active chest pain, reports intermittent chest pain with deep inspiration the last week. Denies any hx of CAD. states last used IV meth approx 1 week ago Home Medications & Allergies Allergies: Coded Allergies: No Known Drug Allergies (Unverified , 12/30/22) Home Medication List Reviewed: Yes ICS-Cobvku-Wqffac Hx Patient Social History Marital Status: single Smoking Status: Current Everyday Smoker Alcohol Use?: No Substance type: Methamphetamine Family Medical History Significant Family History: No Pertinent Family Hx Review of Systems-General Review of Systems Constitutional: No fever, No malaise EENTM: No blurred vision, No double vision Respiratory: cough; No hemoptysis Cardiovascular: No chest pain, No palpitations Gastrointestinal: RUQ, abdominal pain (RUQ), constipation; No nausea, No vomiting Genitourinary: No dysuria, No hematuria Musculoskeletal: No back pain, No joint pain Skin: No change in color, No change in hair/nails Psychiatric/Neurological: Denies Anxiety, Denies Depressed All Other Systems Reviewed Negative Unless Noted: Yes (Negative excepted noted.) Reviewed Test Results Reviewed Test Results Lab Laboratory Tests 01/01/23 06:39: White Blood Count 18.1H, Red Blood Count 4.49, Hemoglobin 12.1L, Hematocrit 38L, Mean Corpuscular Volume 85, Mean Corpuscular Hemoglobin 27, Mean Corpuscular Hemoglobin Concent 32, Red Cell Distribution Width 14.6H, Platelet Count 245, Mean Platelet Volume 10.5, Sodium Level 133L, Potassium Level 3.9, Chloride Level 105, Carbon Dioxide Level 22, Anion Gap 6, Blood Urea Nitrogen 10, Creatinine 0.76, Estimat Glomerular Filtration Rate 112, BUN/Creatinine Ratio 13, Glucose Level 98, Calcium Level 8.4L Microbiology 12/30/22 Blood Culture - Preliminary, Resulted Staphylococcus aureus See Comments 12/30/22 Urine Culture - Preliminary, Resulted Staphylococcus aureus Physical Exam Physical Exam Vital Signs Vital Signs - First Documented 11/1312/30/22 12/30/22 12/30/22 13:26 16:40 17:37 19:19 Temp 36.9 Pulse 99 Resp 16 B/P (MAP) 124/83 (97) Pulse Ox 96 O2 Delivery Room Air O2 Flow Rate 2.00 FiO2 21 Capillary Refill : Less Than 3 Seconds Height, Weight, BMI Height: '" Weight: lbs. oz. kg; 23.47 BMI Method: General Appearance: No Apparent Distress, Anxious Eyes: Bilateral Eye Normal Inspection, Bilateral Eye PERRL HEENT: TMs Normal, Normal ENT Inspection Neck: Full Range of Motion, Normal Inspection, Non Tender Respiratory: Chest Non Tender, No Accessory Muscle Use, No Respiratory Distress, Crackles, Decreased Breath Sounds Cardiovascular: Regular Rate, Rhythm, No JVD, No Murmur, Normal Peripheral Pulses Gastrointestinal: No Pulsatile Mass, Abnormal Bowel Sounds (Hypoactive), Distended (mild); No Hernia; Tenderness (epigastric and RUQ) Back: Normal Inspection, CVA Tenderness (R) Extremity: Normal Capillary Refill, Normal Inspection, Non Tender, No Calf Tenderness, No Pedal Edema Neurologic/Psychiatric: Alert, Oriented x3, No Motor/Sensory Deficits, Normal Mood/Affect Skin: Normal Color, Warm/Dry Lymphatic: No Adenopathy A/P-Cardiology Admission Diagnosis Sepsis with staph bacteremia Pneumonia Constipation IV drug use Assessment/Plan Sepsis with staph bacteremia, currently on IV antibiotics. Concern for bacterial enocarditis given patients history of IV drug use. Will plan to proceed with LESLIE in the morning. Pneumonia, management per medical services Constipation, Dr Encarnacion managing IV methamphetamine use Thank you for allowing us to participate in the management of Mr. Lazo. This is Anh Murray PA-C, as a scribe for Dr. Hampton. Patient was evaluated with Anh, I visited with Anh and reviewed the record, I discussed the management plan with the primary care physician. Did not find him in the room on my attempt to evaluate him Patient has staph bacteremia sepsis, history of IV methamphetamine use and pneumonia. Planning to proceed with LESLIE to rule out any underlying vegetation due to the high risk of endocarditis. ANH MURRAY PA-C Jan 01, 2023 10:18 CHEN HAMPTON MD Jan 01, 2023 15:57
[2023-01-01] MEDS: SENNOSIDES 8.6 MG TABLET PO PRN (10:30)
[2023-01-01] MEDS: cefTRIAXone IV/IM 1,000 MG in NS (IVPB) 50 ML 50 ML IV SCH (16:24)
[2023-01-01] MEDS ORDERED: TROUGH ORDER-PHARMACY XX ONE (20:00)
[2023-01-02] VITALS (12 sets, daily range): BP systolic 118–147; BP diastolic 68–91
[2023-01-02] MEDS: HYDROmorphone INJECTION 2 MG/ML VIAL IV PRN (03:58)
[2023-01-02] MEDS: NS IV 1000 ML 1,000 ML IV SCH ×2 (04:03→14:47)
[2023-01-02 05:45] LABS: HEMATOCRIT 38 % (40-54); HEMOGLOBIN 12.2 g/dL (13.3-17.7); MEAN CORPUSCULAR HEMOGLOBIN 27 pg (25-34); MEAN CORPUSCULAR HGB CONC 32 g/dL (32-36); MEAN CORPUSCULAR VOLUME 83 fL (80-99); MEAN PLATELET VOLUME 10.6 fL (9.0-12.2); PLATELET COUNT 307 10^3/uL (130-400); WHITE BLOOD COUNT 15.4 10^3/uL (4.3-11.0)
[2023-01-02 05:59] LABS: POTASSIUM 3.9 MMOL/L (3.6-5.0)
[2023-01-02 06:00] LABS: CALCIUM 8.6 MG/DL (8.5-10.1)
[2023-01-02 06:04] LABS: CREATININE SERUM 0.66 MG/DL (0.60-1.30)
--- NOTE | 2023-01-02 07:11 | Progress Note - Surgery ---
SUDHAKAR PÉREZ 01/02/23 0710: Subjective Date Seen by a Provider: Jan 02, 2023 Time Seen by a Provider: 07:00 Subjective/Events-last exam Patient seen this morning and was sleeping. When he woke up he said his abdominal pain is still present. It has now been 7 days since his last BM. He has passed gas. He has been on docusate, miralax, mag citrate, and senna. He is tolerating his diet well and it does not contribute to his pain. Denies nausea, vomiting. White count continues to trend down to 15.4 from 18.1. Focused Exam Lactate Level 12/30/22 16:40: Lactic Acid Level 0.75 Objective Exam Vital Signs Date Time Temp Pulse Resp B/P (MAP) Pulse Ox O2 Delivery O2 Flow Rate FiO2 01/02/23 03:39 37.4 92 16 125/75 (92) 92 Room Air 01/02/23 00:22 91 01/01/23 23:34 37.5 90 20 147/87 (107) 92 Room Air 01/01/23 20:44 37.6 01/01/23 20:20 Room Air 01/01/23 19:22 94 01/01/23 19:12 38.1 98 20 133/86 (102) 92 Room Air 01/01/23 15:57 37.7 90 18 120/76 (91) 91 Room Air 01/01/23 13:00 82 01/01/23 11:22 36.8 75 16 123/64 (83) 94 Room Air 01/01/23 09:00 91 Nasal Cannula 2.00 01/01/23 07:39 36.7 88 18 107/54 (71) 91 Nasal Cannula 2.00 I & O 01/02/23 07:00 Intake Total 2375 ml Output Total 1975 ml Balance 400 ml Capillary Refill : Less Than 3 Seconds General Appearance: No Apparent Distress, Anxious HEENT: PERRL/EOMI, Normal ENT Inspection Neck: Normal Inspection, Non Tender Respiratory: Chest Non Tender, No Accessory Muscle Use, No Respiratory Distress Cardiovascular: Regular Rate, Rhythm, No JVD Peripheral Pulses: 2+ Radial Pulses (R), 2+ Radial Pulses (L) Gastrointestinal: normal bowel sounds, soft, tenderness (random areas of tenderness on exam) Extremity: Non Tender, No Calf Tenderness, Other (left bka) Neurologic/Psychiatric: Alert, Oriented x3 Skin: Normal Color, Warm/Dry Lymphatic: No Adenopathy Results Lab Laboratory Tests 01/01/23 20:10: Vancomycin Level Trough 7.8L 01/02/23 05:35: Sodium Level 135, Potassium Level 3.9, Chloride Level 105, Carbon Dioxide Level 23, Anion Gap 7, Blood Urea Nitrogen 9, Creatinine 0.66, Estimat Glomerular Filtration Rate 117, BUN/Creatinine Ratio 14, Glucose Level 106H, Calcium Level 8.6 01/02/23 05:36: White Blood Count 15.4H, Red Blood Count 4.57, Hemoglobin 12.2L, Hematocrit 38L, Mean Corpuscular Volume 83, Mean Corpuscular Hemoglobin 27, Mean Corpuscular Hemoglobin Concent 32, Red Cell Distribution Width 14.4, Platelet Count 307, Mean Platelet Volume 10.6 Microbiology 12/30/22 Blood Culture - Preliminary, Resulted Staphylococcus aureus See Comments 12/30/22 Urine Culture - Preliminary, Resulted Staphylococcus aureus Mixed Bacterial Pau Assessment/Plan Assessment/Plan Assessment/Plan ruq abdominal pain right upper lobe pneumonia constipation MRSA bacteremia methamphetamine use. add senna to aid with constipation if constipation persists, consider enema or fecal disimpaction continue abx pain control use incentive spirometer encourage ambulation NANCY ENCARNACION DO 01/02/23 1846: Subjective Subjective/Events-last exam Patient still with abdominal pain, random locations. Tolerating diet with no issues. WBC trending down. Denies n/v fever sweats chills shortness of breath or chest pain at this time. Objective Exam General Appearance: No Apparent Distress, Anxious HEENT: PERRL/EOMI, Normal ENT Inspection Neck: Normal Inspection, Non Tender Respiratory: Chest Non Tender, No Accessory Muscle Use, No Respiratory Distress Cardiovascular: Regular Rate, Rhythm, No JVD Gastrointestinal: normal bowel sounds, soft, tenderness (random areas of tenderness on exam) Extremity: Non Tender, No Calf Tenderness, Other (left bka) Neurologic/Psychiatric: Alert, Oriented x3 Skin: Normal Color, Warm/Dry Lymphatic: No Adenopathy Assessment/Plan Assessment/Plan Assessment/Plan ruq abdominal pain right upper lobe pneumonia constipation MRSA bacteremia methamphetamine use. mag citrated ordered and encouraged to take all at one time if constipation persists may need enema continue abx pain control use incentive spirometer encourage ambulation LESLIE Today Supervisory-Addendum Brief Verification & Attestation Participated in pt care: history, MDM, physical Personally performed: exam, history, MDM, supervision of care Care discussed with: Medical Student Procedures: n/a Results interpretation: Verified all documentation Verification and Attestation of Medical Student E/M Service A medical student performed and documented this service in my presence. I reviewed and verified all information documented by the medical student and made modifications to such information, when appropriate. I personally performed the physical exam and medical decision making. Nancy Encarnacion, Jan 02, 2023,18:53 SUDHAKAR PÉREZ Jan 02, 2023 07:10 NANCY ENCARNACION DO Jan 02, 2023 18:46
[2023-01-02] MEDS: VANCOMYCIN 1250 MG/NS 250 ML PREMIX IV SCH ×3 (08:07→23:07)
[2023-01-02] MEDS: DOCUSATE SODIUM 100 MG CAPSULE PO SCH ×2 (08:09→19:32)
[2023-01-02] MEDS: fentaNYL INJECTION 100 MCG/2 ML VIAL IV PRN (08:09)
--- NOTE | 2023-01-02 08:13 | Cardiology Progress Note ---
Subjective Date Seen by Provider: Jan 02, 2023 Time Seen by Provider: 08:12 Subjective/Events-last exam Patient in bed, c/o abdominal pain and constipation. Denies any chest pain Focused Exam Lactate Level 12/30/22 16:40: Lactic Acid Level 0.75 Objective-Cardiology Exam Last Set of Vital Signs Vital Signs 12/30/22 01/01/23 01/02/23 19:19 09:00 08:46 Temp 35.8 Pulse 87 Resp 16 B/P (MAP) 131/79 (96) Pulse Ox 93 O2 Delivery Room Air O2 Flow Rate 2.00 FiO2 21 I&O Intake and Output 01/02/23 00:00 Intake Total 1900 ml Output Total 1975 ml Balance -75 ml Intake Oral 1600 ml IV Total 300 ml Output Urine Total 1975 ml # Voids 1 General: Alert, Oriented X3, Cooperative HEENT: Atraumatic, PERRLA Lungs: Clear to Auscultation, Normal Air Movement Heart: Regular Rate, Normal S1, Normal S2 Abdomen: Other (RUQ ttp) Extremities: No Edema Skin: No Rashes, No Significant Lesion Neuro: Normal Speech, Cranial Nerves 3-12 NL Psych/Mental Status: Mental Status NL, Mood NL Results Lab Laboratory Tests 01/02/23 05:35 01/02/23 05:36 A/P-Cardiology Admission Diagnosis Sepsis with staph bacteremia Pneumonia Constipation IV drug use Assessment/Plan Sepsis with staph bacteremia, currently on IV antibiotics. Concern for bacterial enocarditis given patients history of IV drug use. Will plan to proceed with LESLIE to r/o vegetation this afternoon. Instructed patient to stay NPO Pneumonia, management per medical services Constipation, Dr Encarnacion managing IV methamphetamine use Supervisory-Addendum Brief Supervisory Addendum Participated in pt care: history, MDM, physical Personally performed: exam, history, MDM Care discussed with: NITHIN Results interpretation: Verified all documentation Notes: Patient was seen and evaluated with Anh, examination performed, management plan was discussed, agree with the current scribed note, I made few changes to the note using Italic font Patient was seen at bedside, sitting comfortably in, discussed the LESLIE procedure and the need to be n.p.o. I am planning to proceed with LESLIE to evaluate for any valvular involvement with his staph bacteremia. Continue antibiotic and continue to monitor ANH MURRAY PA-C Jan 02, 2023 08:13 CHEN MCNAMARA MD Jan 02, 2023 09:46
--- NOTE | 2023-01-02 09:59 | Cardiac Procedure Note-CS/ASA ---
Pre-Procedure Note Pre-Op Procedure Note Date of Available H&P: Jan 02, 2023 Date H&P Reviewed: Jan 02, 2023 Time H&P Reviewed: 09:59 History & Physical: H&P Reviewed, Patient Examed, No changes noted Pre-Operative Diagnosis: Sepsis Moderate Sedation PreProcedure Time 09:59 ASA Score 3 Airway Lungs Heart ASA score ASA 1: a normal healthy patient ASA 2: a patient with a mild systemic disease (mid diabetes, controlled hypertension, obesity ASA 3: a patient with a severe systemic disease that limits activity (angina, COPD, prior Myocardial infarction) ASA 4: a patient with an incapacitating disease that is a constant threat to life (CHF, renal failure) ASA 5: a moribund patient not expected to survive 24 hrs. (ruptured aneurysm) ASA 6: a declared brain- patient whose organs are being harvested. For emergent operations, add the letter E after the classification Mallampati Classification Grade 3 Sedation Plan Analgesia, Amnesia, Plan communicated to team members, Discussed options with patient/fam, Discussed risks with patient/fam The patient is an appropriate candidate to undergo the planned procedure, sedation, and anesthesia. The patient immediately re-assessed prior to indication. CHEN MCNAMARA MD Jan 02, 2023 09:59
[2023-01-02] MEDS ORDERED: [UNRECOGNIZED DRUG - OTHER] PR ONE (10:45)
[2023-01-02] MEDS ORDERED: LIDOCAINE 2% VISCOUS 15 ML UDC ONE (11:23)
[2023-01-02] MEDS ORDERED: MIDAZOLAM INJ 2 MG/2 ML VIAL ONE ×2 (11:27→11:41)
[2023-01-02] MEDS ORDERED: proPOfol INJECTION 200 MG/20 ML VIAL IV ONE ×2 (11:27→11:41)
[2023-01-02] MEDS ORDERED: NS IV 1000 ML 0 ML ONE (11:34)
--- NOTE | 2023-01-02 11:34 | Progress Note - Hospitalist ---
YANI HOWELL 01/02/23 1134: Subjective HPI/CC On Admission Date Seen by Provider: Jan 02, 2023 Time Seen by Provider: 11:28 Pt is a 47 y/o male who presented to the ER yesterday by his cousin with back/R flank pain that gradually moved into the RUQ. He states that his pain started the day before and that it worsened in the morning to the point that it was a constant pain. He states that his pain worsens when taking a deep breath and it is very intense when he coughs. He reports a mostly nonproductive, infrequent cough although he was able to produce some phelgm last night (unsure what color). He denies any trauma to the area. Denies nausea or vomiting or any hx of blood clots. Hx of GERD and does not currently take any meds for it. Last BM was 5 days ago which he states is normal for him, he has long struggled with constipation. Denies any prior abd surgeries. He is a current tobacco smoker (alternating how much 2ppd-1 ppd to a few cigarettes per day) since the age of 16. 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 Subjective/Events-last exam Pt states that he still has not had a bowel movement, making it day 7 since his last one. He reports that his pain is about the same level that it was yesterday. He notes that he is interested in getting an enema if it will give him some relief in sxs. States that he feels a bit more bloated today than yesterday. He has been NPO after midnight d/t LESLIE this afternoon. Reports that he very infrequently coughs now and that he does not feel SOB. Review of Systems General: No Chills, No Night Sweats HEENT: No Head Aches, No Visual Changes Pulmonary: No Dyspnea; Cough Cardiovascular: No: Chest Pain, Palpitations Gastrointestinal: Abdominal Pain, Constipation; No: Nausea, Vomiting Genitourinary: No Dysuria, No Frequency, No Incontinence Musculoskeletal: No: arm pain, leg pain Neurological: No: Change in speech, Confusion Focused Exam Lactate Level 12/30/22 16:40: Lactic Acid Level 0.75 Objective Exam Vital Signs Vital Signs Date Time Temp Pulse Resp B/P (MAP) Pulse Ox O2 Delivery O2 Flow Rate FiO2 01/02/23 12:30 81 19 112/88 97 Room Air 01/02/23 12:22 6.00 01/02/23 08:46 35.8 12/30/22 19:19 21 Capillary Refill : Less Than 3 Seconds General Appearance: No Apparent Distress, Anxious HEENT: PERRL/EOMI, Normal ENT Inspection, Pharynx Normal Neck: Normal Inspection, Non Tender, Supple Respiratory: Chest Non Tender, No Accessory Muscle Use, No Respiratory Distress, Crackles Cardiovascular: Regular Rate, Rhythm, No Gallop, No Murmur, Normal Peripheral Pulses Gastrointestinal: Abnormal Bowel Sounds (hypoactive), Distended, Tenderness (Worse in RUQ) Extremity: No Calf Tenderness, Other (L BKA) Neurologic/Psychiatric: Alert, Oriented x3, No Motor/Sensory Deficits, Normal Mood/Affect Skin: Normal Color, Warm/Dry Results/Procedures Lab Laboratory Tests 01/02/23 05:35 01/02/23 05:36 Patient resulted labs reviewed. 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 - Start on anticoagulation + consider Venous doppler study of LEs Pneumonia - Continue azithryomycin 250 mg/d- hold PO until after LESLIE - Continue ceftriazone 1000 mg IV/d - Continue albuterol sulfate 2.5 inhaled q 4 hrs PRN Constipation - Continue polyethylene glycol, docusate, senna 8.6 mg, mag citrate, and bisacodyl suppository 10 mg PRN - Continue hydromorphone 0.5 mg IV q1 hrs PRN, fentanyl 75 mcg IV PRN q2 hrs for adequate pain control - Enema ordered today - General surgery following, appreciate recommendations SABINA CALERO MD 01/02/23 9522: Assessment/Plan Assessment and Plan Assess & Plan/Chief Complaint Patient reports persistent abdominal pain. He did not have bowel movement yesterday. He did have senna, MiraLAX, and mag citrate. He is requesting an enema which has been ordered. He is to go down for LESLIE today. I was called by Dr. Hampton after his LESLIE and there were no vegetations seen but they did notice a IVC thrombus and Dr Hampton started him on Eliquis. Will check venous doppler of leg to evaluate for DVT. Supervisory-Addendum Brief Verification & Attestation Participated in pt care: history, MDM, physical Personally performed: exam, history, MDM, supervision of care Care discussed with: Medical Student Procedures: n/a Results interpretation: Verified all documentation Verification and Attestation of Medical Student E/M Service A medical student performed and documented this service in my presence. I reviewed and verified all information documented by the medical student and made modifications to such information, when appropriate. I personally performed the physical exam and medical decision making. Sabina Calero, Jan 02, 2023,14:33 YANI HOWELL Jan 02, 2023 11:34 SABINA CALERO MD Jan 02, 2023 14:32
[2023-01-02] MEDS ORDERED: LIDOCAINE 2% VISCOUS 15 ML UDC PO ONE (11:38)
[2023-01-02] MEDS ORDERED: KETAMINE 50 MG/5 ML SYRINGE ONE (11:41)
--- NOTE | 2023-01-02 12:55 | Anesthesia-General Post-Op ---
MAC Patient Condition Mental Status/LOC: Same as Preop Cardiovascular: Satisfactory Nausea/Vomiting: Absent Respiratory: Satisfactory Pain: Controlled Complications: Absent Post Op Complications Complications None Follow Up Care/Instructions Patient Instructions None needed. Anesthesiology Discharge Order Discharge Order Patient was doing well after the procedure with no complaints, stable vital signs, no apparent adverse anesthesia problems. No complications reported per nursing. MISTY DREW DO Jan 02, 2023 12:55
--- NOTE | 2023-01-02 13:04 | Diagnostic Imaging Report ---
PROCEDURE: US right lower extremity venous. TECHNIQUE: Multiple real-time grayscale images were obtained over the right lower extremity in various projections. Additional spectral analysis and color Doppler duplex images were also obtained. INDICATION: IVC thrombus. There is no evidence of a right lower extremity DVT. The right lower extremity deep venous system shows normal compressibility with normal response to augmentation and Valsalva. No fluid collection or mass is detected. IMPRESSION: No evidence of right lower extremity DVT. Dictated by: Dictated on workstation # [id number]
[2023-01-02] MEDS ORDERED: [UNRECOGNIZED DRUG - OTHER] PR NR (14:00)
[2023-01-02] MEDS: AZITHROMYCIN 250 MG TABLET PO SCH (14:42)
[2023-01-02] MEDS: APIXABAN 5 MG TABLET PO SCH ×2 (14:42→21:28)
[2023-01-02] MEDS: KETOROLAC INJ 15 MG/ML VIAL IV PRN (17:21)
[2023-01-02] MEDS: cefTRIAXone IV/IM 1,000 MG in NS (IVPB) 50 ML 50 ML IV SCH (18:39)
[2023-01-02] MEDS ORDERED: MAGNESIUM CITRATE 300 ML BTL PO NR (19:00)
[2023-01-02] MEDS ORDERED: APIXABAN 5 MG TABLET PO SCH (21:00)
[2023-01-03] MEDS: KETOROLAC INJ 15 MG/ML VIAL IV PRN ×2 (01:03→13:19)
[2023-01-03] MEDS: NS IV 1000 ML 1,000 ML IV SCH ×3 (03:34→15:05)
[2023-01-03 03:47] VITALS: BP 134/90
[2023-01-03] MEDS: HYDROmorphone INJECTION 2 MG/ML VIAL IV PRN ×2 (04:15→18:48)
[2023-01-03 05:59] LABS: HEMATOCRIT 38 % (40-54); HEMOGLOBIN 12.3 g/dL (13.3-17.7); MEAN CORPUSCULAR HEMOGLOBIN 27 pg (25-34); MEAN CORPUSCULAR HGB CONC 32 g/dL (32-36); MEAN CORPUSCULAR VOLUME 84 fL (80-99); MEAN PLATELET VOLUME 11.2 fL (9.0-12.2); PLATELET COUNT 322 10^3/uL (130-400); WHITE BLOOD COUNT 10.2 10^3/uL (4.3-11.0)
[2023-01-03 06:07] LABS: POTASSIUM 3.9 MMOL/L (3.6-5.0)
[2023-01-03 06:08] LABS: CALCIUM 8.1 MG/DL (8.5-10.1)
[2023-01-03 06:12] LABS: CREATININE SERUM 0.72 MG/DL (0.60-1.30)
[2023-01-03] MEDS: APIXABAN 5 MG TABLET PO SCH ×2 (07:48→19:12)
[2023-01-03] MEDS: DOCUSATE SODIUM 100 MG CAPSULE PO SCH ×2 (07:48→19:12)
[2023-01-03] MEDS: AZITHROMYCIN 250 MG TABLET PO SCH (07:48)
[2023-01-03] MEDS: VANCOMYCIN 1250 MG/NS 250 ML PREMIX IV SCH ×2 (07:48→16:52)
[2023-01-03 08:00] VITALS: BP 141/78
--- NOTE | 2023-01-03 09:38 | Progress Note - Hospitalist ---
YANI HOWELL 01/03/23 0938: Subjective HPI/CC On Admission Date Seen by Provider: Jan 03, 2023 Time Seen by Provider: 09:32 Pt is a 47 y/o male who presented to the ER yesterday by his cousin with back/R flank pain that gradually moved into the RUQ. He states that his pain started the day before and that it worsened in the morning to the point that it was a constant pain. He states that his pain worsens when taking a deep breath and it is very intense when he coughs. He reports a mostly nonproductive, infrequent cough although he was able to produce some phelgm last night (unsure what color). He denies any trauma to the area. Denies nausea or vomiting or any hx of blood clots. Hx of GERD and does not currently take any meds for it. Last BM was 5 days ago which he states is normal for him, he has long struggled with constipation. Denies any prior abd surgeries. He is a current tobacco smoker (alternating how much 2ppd-1 ppd to a few cigarettes per day) since the age of 16. 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 Subjective/Events-last exam Pt was able to have two BMs today and reports feeling better since then. He reports that his pain is still present in RLQ/RUQ but that having a BM made his sxs less severe overall. He reports a good appetite and denies any nausea or vomiting. He states that toradol has helped with his pain control significantly. Denies CP, SOB, and notes a very infrequent cough. 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 Pt was started on eliquis 5 mg PO BID. Venous doppler was conducted and was negative for DVT. Repeat blood cultures came back and grew staph aureus again so will draw again to be tested again. Review of Systems General: No Chills, No Night Sweats HEENT: No Head Aches, No Visual Changes Pulmonary: No Dyspnea; Cough Cardiovascular: No: Chest Pain, Palpitations Gastrointestinal: Abdominal Pain; No: Nausea, Vomiting Genitourinary: No Dysuria, No Frequency, No Incontinence Musculoskeletal: No: neck pain, shoulder pain Neurological: No: Change in speech, Confusion Objective Exam Vital Signs Vital Signs Date Time Temp Pulse Resp B/P (MAP) Pulse Ox O2 Delivery O2 Flow Rate FiO2 01/03/23 08:00 36.4 75 16 141/78 (99) 98 Room Air 01/02/23 12:22 6.00 12/30/22 19:19 21 Capillary Refill : Less Than 3 Seconds General Appearance: No Apparent Distress, WD/WN HEENT: PERRL/EOMI, Normal ENT Inspection Neck: Normal Inspection, Non Tender Respiratory: Chest Non Tender, No Accessory Muscle Use, No Respiratory Distress, Crackles Cardiovascular: Regular Rate, Rhythm, No Gallop, No Murmur, Normal Peripheral Pulses Gastrointestinal: Abnormal Bowel Sounds (Hypoactive), Distended Extremity: Non Tender, No Calf Tenderness, Other (L BKA) Neurologic/Psychiatric: Alert, Oriented x3, No Motor/Sensory Deficits, Normal Mood/Affect Skin: Normal Color, Warm/Dry Results/Procedures Lab Laboratory Tests 01/03/23 05:36 Patient resulted labs reviewed. Assessment/Plan Assessment and Plan Assess & Plan/Chief Complaint Sepsis, staph bacteremia - WBC dropped from 15.4 yesterday to 10.2 today - Continue vancomycin 1250 mg q12 hrs IV - Repeated blood cultures grew staph aureus again, likely d/t subtherapeutic vanc trough. Adjusted dosing. Will repeat blood cultures once more. 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 Neg venous doppler - Continue eliquis 5 mg PO BID Pneumonia - Continue azithryomycin 250 mg/d - Continue ceftriazone 1000 mg IV/d Constipation - Continue polyethylene glycol, docusate, senna 8.6 mg, mag citrate, and bisacodyl suppository 10 mg PRN - Continue toradol 15 mg IV q6hrs PRN for pain - Continue hydromorphone 0.5 mg IV q1 hrs PRN, fentanyl 75 mcg IV PRN q2 hrs for adequate pain control - General surgery following, appreciate recommendations SABINA CALERO MD 01/03/232033: Assessment/Plan Assessment and Plan Assess & Plan/Chief Complaint Pt reports doing better today. Abd pain improved after BM. Blood cultures still positive on repeat but vanc trough was subtherapeutic when done so will repeat today. Will complete abx for pna today. Continue bowel regimen. Discussed with Dr Hampton about IVC thrombus and concern for potentially infective thrombus. If unable to clear bacteremia that would be presumed source and would likely need to transfer to tertiary center. Supervisory-Addendum Brief Verification & Attestation Participated in pt care: history, MDM, physical Personally performed: exam, history, MDM, supervision of care Care discussed with: Medical Student Procedures: n/a Results interpretation: Verified all documentation Verification and Attestation of Medical Student E/M Service A medical student performed and documented this service in my presence. I reviewed and verified all information documented by the medical student and made modifications to such information, when appropriate. I personally performed the physical exam and medical decision making. Sabina Calero, Jan 03, 2023,20:32 YANI HOWELL Jan 03, 2023 09:38 SABINA CALERO MD Jan 03, 2023 20:34
--- NOTE | 2023-01-03 10:53 | Progress Note - Surgery ---
SUDHAKAR PÉREZ 01/03/23 1052: Subjective Date Seen by a Provider: Jan 03, 2023 Time Seen by a Provider: 10:35 Subjective/Events-last exam Patient was seen this morning and was resting comfortably in bed. He is no longer restless with pain like he was earlier in the week. He was given an enema last night and this morning thus far has had 3 BM's and says he feels better after. He still admits to some RUQ tenderness but clinically seems to have improved. He denies nausea, vomiting, fever, chills. He is eating and tolerating his diet well. He is also getting out of bed 2-3 times a day to move around. To follow up on his MRSA bacteremia, he had a LESLIE yesterday that showed no signs of valvular vegetations but did show an IVC thrombus. He was subsequently started on Eliquis. His white count also continues to trend downward from 15.4 yesterday to 10.2 this morning. Review of Systems General: No Chills, No Night Sweats HEENT: No Head Aches, No Sinus Congestion Pulmonary: No Dyspnea; Cough Cardiovascular: No: Palpitations, Orthopnea Gastrointestinal: Abdominal Pain (RUQ); No: Nausea, Vomiting Genitourinary: No Dysuria, No Frequency Musculoskeletal: No: neck pain, shoulder pain Neurological: No: Weakness, Confusion Objective Exam Vital Signs Date Time Temp Pulse Resp B/P (MAP) Pulse Ox O2 Delivery O2 Flow Rate FiO2 01/03/23 08:43 Room Air 01/03/23 08:00 36.4 75 16 141/78 (99) 98 Room Air 01/03/23 07:00 67 01/03/23 03:47 36.2 71 16 134/90 (105) 98 Room Air 01/03/23 00:19 87 01/02/23 23:10 36.6 78 20 124/84 (97) 96 Room Air 01/02/23 20:38 36.9 78 18 141/68 (92) 95 Room Air 01/02/23 19:33 81 01/02/23 19:30 Room Air 01/02/23 17:27 37.4 90 16 127/81 (96) 94 Room Air 01/02/23 15:51 37.0 84 16 129/91 (104) 93 Room Air 01/02/23 14:34 133/80 (97) 57 01/02/23 13:57 101 134/91 (105) 01/02/23 13:54 36.8 91 94 01/02/23 13:26 36.8 16 122/85 (97) 01/02/23 12:55 36.9 91 16 118/83 (95) 94 Room Air 01/02/23 12:30 81 19 112/88 97 Room Air 01/02/23 12:22 79 16 102/83 99 Nasal Cannula 6.00 01/02/23 12:12 82 16 112/77 98 Nasal Cannula 6.00 01/02/23 12:02 89 17 118/82 98 Nasal Cannula 6.00 01/02/23 11:57 90 15 119/90 99 Nasal Cannula 6.00 01/02/23 11:55 93 15 117/58 99 Nasal Cannula 6.00 01/02/23 11:50 88 16 121/80 99 Nasal Cannula 6.00 01/02/23 11:40 81 18 121/86 98 Nasal Cannula 6.00 I & O 01/03/23 06:59 Intake Total 4660 ml Output Total 2250 ml Balance 2410 ml Capillary Refill : Less Than 3 Seconds General Appearance: No Apparent Distress, WD/WN HEENT: PERRL/EOMI, Normal ENT Inspection Neck: Normal Inspection, Non Tender Respiratory: Chest Non Tender, No Accessory Muscle Use, No Respiratory Distress, Crackles Cardiovascular: Regular Rate, Rhythm, No Gallop, No Murmur, Normal Peripheral Pulses Peripheral Pulses: 2+ Radial Pulses (R), 2+ Radial Pulses (L) Gastrointestinal: normal bowel sounds, soft, tenderness (localized to RUQ) Extremity: Non Tender, No Calf Tenderness, Other (L BKA) Neurologic/Psychiatric: Alert, Oriented x3, No Motor/Sensory Deficits, Normal Mood/Affect Skin: Normal Color, Warm/Dry Lymphatic: No Adenopathy Results Lab Laboratory Tests 01/03/23 05:36: White Blood Count 10.2, Red Blood Count 4.54, Hemoglobin 12.3L, Hematocrit 38L, Mean Corpuscular Volume 84, Mean Corpuscular Hemoglobin 27, Mean Corpuscular Hemoglobin Concent 32, Red Cell Distribution Width 14.6H, Platelet Count 322, Mean Platelet Volume 11.2, Sodium Level 140, Potassium Level 3.9, Chloride Level 110H, Carbon Dioxide Level 25, Anion Gap 5, Blood Urea Nitrogen 8, Creatinine 0.72, Estimat Glomerular Filtration Rate 114, BUN/Creatinine Ratio 11, Glucose Level 94, Calcium Level 8.1L Microbiology 01/02/23 MRSA Screen - Final, Complete MRSA not isolated 01/01/23 Blood Culture - Preliminary, Resulted Staphylococcus aureus See Comments 12/30/22 Urine Culture - Final, Complete Staphylococcus aureus Mixed Bacterial Pau Assessment/Plan Assessment/Plan Assessment/Plan ruq abdominal pain right upper lobe pneumonia constipation MRSA bacteremia methamphetamine use. continue abx continue to monitor pain consider HIDA scan as outpatient if RUQ pain persists use incentive spirometer encourage ambulation NANCY ENCARNACION DO 01/03/23 1516: Subjective Subjective/Events-last exam Pain improving. Tolerating diet. Had several bowel movements this morning that made him feel better. WBC decreasing. Has IVC thrombus and on Eliquis Objective Exam General Appearance: No Apparent Distress, WD/WN HEENT: PERRL/EOMI, Normal ENT Inspection Neck: Normal Inspection, Non Tender Respiratory: Chest Non Tender, No Accessory Muscle Use, No Respiratory Distress Cardiovascular: Regular Rate, Rhythm, No JVD Gastrointestinal: soft, tenderness (minimal ruq) Extremity: Non Tender, No Calf Tenderness, Other (L BKA) Neurologic/Psychiatric: Alert, Oriented x3 Skin: Normal Color, Warm/Dry Lymphatic: No Adenopathy Assessment/Plan Assessment/Plan Assessment/Plan ruq abdominal pain right upper lobe pneumonia constipation MRSA bacteremia methamphetamine use IVC thrombus. continue abx continue to monitor pain consider HIDA scan as outpatient if RUQ pain persists but do not feel pain related to his gallbladder, more related to other medical issues going on. use incentive spirometer encourage ambulation will sign off, call if needed. Will have him follow up in clinic. Would need colonoscopy as well. Supervisory-Addendum Brief Verification & Attestation Participated in pt care: history, MDM, physical Personally performed: exam, history, MDM, supervision of care Care discussed with: Medical Student Procedures: n/a Results interpretation: Verified all documentation Verification and Attestation of Medical Student E/M Service A medical student performed and documented this service in my presence. I reviewed and verified all information documented by the medical student and made modifications to such information, when appropriate. I personally performed the physical exam and medical decision making. Nancy Encarnacion, Jan 03, 2023,15:16 SUDHAKAR PÉREZ Jan 03, 2023 10:52 NANCY ENCARNACION DO Jan 03, 2023 15:16
[2023-01-03 11:44] VITALS: BP 131/86
--- NOTE | 2023-01-03 12:22 | Cardiology Progress Note ---
Subjective Date Seen by Provider: Jan 03, 2023 Time Seen by Provider: 12:20 Subjective/Events-last exam Patient was seen at bedside, laying down comfortably, no new complain Objective-Cardiology Exam Last Set of Vital Signs Vital Signs 12/30/22 01/02/23 01/03/23 19:19 12:22 11:44 Temp 37.1 Pulse 83 Resp 18 B/P (MAP) 131/86 (101) Pulse Ox 95 O2 Delivery Room Air O2 Flow Rate 6.00 FiO2 21 I&O Intake and Output 01/02/23 23:59 Intake Total 4285 ml Output Total 1850 ml Balance 2435 ml Intake Oral 2735 ml IV Total 1550 ml Output Urine Total 1850 ml # Voids 4 General: Alert, Oriented X3, Cooperative HEENT: Atraumatic, PERRLA Lungs: Clear to Auscultation, Normal Air Movement Heart: Regular Rate, Normal S1, Normal S2 Abdomen: Other (RUQ ttp) Extremities: No Edema Skin: No Rashes, No Significant Lesion Neuro: Normal Speech, Cranial Nerves 3-12 NL Psych/Mental Status: Mental Status NL, Mood NL Results Lab Laboratory Tests 01/03/23 05:36 A/P-Cardiology Admission Diagnosis Sepsis with staph bacteremia Pneumonia Constipation IV drug use Assessment/Plan Sepsis with staph bacteremia, currently on IV antibiotics. Concern for bacterial enocarditis given patients history of IV drug use. LESLIE was done which did not show any vegetation but there was a large thrombus in the inferior vena cava at the junction with the right atrium. There was an IVC filter reported on his CT angiogram, I reviewed the angiogram with Dr. Ron, could not see the thrombus but the IVC filter is present although patient does not recall having the filter Started on Eliquis 10 mg twice daily May require thrombectomy and extraction of his filter Pneumonia, management per medical services Constipation, Dr Encarnacion managing IV methamphetamine use CHEN MCNAMARA MD Jan 03, 2023 12:22
[2023-01-03] MEDS: SENNOSIDES 8.6 MG TABLET PO PRN (13:19)
[2023-01-03] MEDS: NICOTINE 14 MG PATCH TD SCH (13:49)
[2023-01-03] MEDS ORDERED: TROUGH ORDER-PHARMACY XX ONE (15:00)
[2023-01-03] MEDS: fentaNYL INJECTION 100 MCG/2 ML VIAL IV PRN (15:14)
[2023-01-03] MEDS: cefTRIAXone IV/IM 1,000 MG in NS (IVPB) 50 ML 50 ML IV SCH (15:55)
[2023-01-03 16:42] VITALS: BP 150/91
[2023-01-03 19:34] VITALS: BP 134/88
[2023-01-04] VITALS (7 sets, daily range): BP systolic 117–136; BP diastolic 72–88
[2023-01-04] MEDS: VANCOMYCIN 1250 MG/NS 250 ML PREMIX IV SCH ×4 (00:08→23:24)
[2023-01-04] MEDS: KETOROLAC INJ 15 MG/ML VIAL IV PRN ×2 (00:40→08:15)
[2023-01-04] MEDS: HYDROmorphone INJECTION 2 MG/ML VIAL IV PRN (04:02)
[2023-01-04] MEDS: NS IV 1000 ML 1,000 ML IV SCH ×3 (05:05→20:32)
[2023-01-04 05:45] LABS: HEMATOCRIT 38 % (40-54); MEAN CORPUSCULAR HEMOGLOBIN 27 pg (25-34); MEAN CORPUSCULAR HGB CONC 32 g/dL (32-36); MEAN CORPUSCULAR VOLUME 84 fL (80-99); MEAN PLATELET VOLUME 10.3 fL (9.0-12.2); PLATELET COUNT 342 10^3/uL (130-400); WHITE BLOOD COUNT 10.5 10^3/uL (4.3-11.0)
[2023-01-04 05:49] LABS: POTASSIUM 3.4 MMOL/L (3.6-5.0)
[2023-01-04 05:55] LABS: CREATININE SERUM 0.67 MG/DL (0.60-1.30)
[2023-01-04] MEDS: NICOTINE 14 MG PATCH TD SCH (08:15)
[2023-01-04] MEDS: SENNOSIDES 8.6 MG TABLET PO PRN (08:15)
[2023-01-04] MEDS: NICOTINE PATCH REMOVAL TP SCH (08:16)
[2023-01-04] MEDS: APIXABAN 5 MG TABLET PO SCH ×2 (08:16→19:42)
[2023-01-04] MEDS: DOCUSATE SODIUM 100 MG CAPSULE PO SCH ×2 (08:16→19:42)
[2023-01-04] MEDS ORDERED: CELECOXIB 100 MG CAPSULE PO ONE (11:45)
--- NOTE | 2023-01-04 11:52 | Progress Note - Hospitalist ---
Subjective HPI/CC On Admission Date Seen by Provider: Jan 04, 2023 Time Seen by Provider: 11:45 Pt is a 47 y/o male who presented to the ER yesterday by his cousin with back/R flank pain that gradually moved into the RUQ. He states that his pain started the day before and that it worsened in the morning to the point that it was a constant pain. He states that his pain worsens when taking a deep breath and it is very intense when he coughs. He reports a mostly nonproductive, infrequent cough although he was able to produce some phelgm last night (unsure what color). He denies any trauma to the area. Denies nausea or vomiting or any hx of blood clots. Hx of GERD and does not currently take any meds for it. Last BM was 5 days ago which he states is normal for him, he has long struggled with constipation. Denies any prior abd surgeries. He is a current tobacco smoker (alternating how much 2ppd-1 ppd to a few cigarettes per day) since the age of 16. 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 Subjective/Events-last exam Patient's only complaint at this time is right upper quadrant pain it is 4 out of 5 but worse with that when he takes a deep breath. He reports minimal sputum production has had no night sweats chills or fever and except for the pain in the fact that he still feels little constipated voices no other complaints and was hoping to go home. He denies any lower abdominal symptoms has had no melena or bright red blood per rectum and denies leg pain. Objective Exam Vital Signs Vital Signs Date Time Temp Pulse Resp B/P (MAP) Pulse Ox O2 Delivery O2 Flow Rate FiO2 01/04/23 11:38 36.6 78 16 122/72 (89) 96 Room Air 01/02/23 12:22 6.00 12/30/22 19:19 21 Capillary Refill : Less Than 3 Seconds General Appearance: No Apparent Distress Respiratory: No Accessory Muscle Use, No Respiratory Distress, Other (Vesicular breath sounds with a few rales over the right midlung field posteriorly elsewhere chest is clear) Cardiovascular: Regular Rate, Rhythm, No Edema, No Gallop, No JVD, No Murmur, Normal Peripheral Pulses Gastrointestinal: Normal Bowel Sounds, Other (Mild right upper quadrant di scomfort to palpation bowel sounds positive no distention no firmness no mass organomegaly noted) Extremity: Normal Inspection (Except for left BKA stump site unremarkable), No Calf Tenderness, No Pedal Edema Results/Procedures Lab Laboratory Tests 01/04/23 05:32 Patient resulted labs reviewed. Assessment/Plan Assessment and Plan Assess & Plan/Chief Complaint Right upper lobe pneumonia involving the minor fissure as well with MRSA sepsis. Sepsis is resolved white count normalizing with no evidence for endocarditis on LESLIE. Advised 10 days of IV antibiotics and also discussed concerns that if there was recurrence of symptoms after finishing IV vancomycin he would likely need 4 to 6 weeks of IV antibiotics with strong concern for infected thrombus noted below his IVC filter or an infected filter itself considering unremarkable LESLIE. 2. Right upper quadrant abdominal pain CT scan reveals a large but simple appearing cyst in the right kidney only if there is acute hemorrhage with this potentially be a site we did discuss diaphragmatic irritation from his pneumonia as being likely as there is a pleuritic component considering negative CT scan of the abdomen as well as sonogram liver or biliary etiology is unlikely. Will add Celebrex considering ongoing need for Eliquis and as needed Tylenol. 3. Constipation we will increase MiraLAX to 17 g twice daily given extra dose now. We will discontinue Dilaudid. EDITA FRASER MD Jan 04, 2023 11:52
[2023-01-04] MEDS: ACETAMINOPHEN 500 MG TABLET PO PRN (11:57)
--- NOTE | 2023-01-04 13:01 | Cardiology Progress Note ---
Subjective Date Seen by Provider: Jan 04, 2023 Time Seen by Provider: 12:57 Subjective/Events-last exam Feels better. More energy. Exam Vital Signs Vital Signs Date Time Temp Pulse Resp B/P (MAP) Pulse Ox O2 Delivery O2 Flow Rate FiO2 01/04/23 12:26 81 01/04/23 11:38 36.6 16 122/72 (89) 96 Room Air 01/02/23 12:22 6.00 12/30/22 19:19 21 Physical Exam Alert oriented, no distress. Neck supple. PICC line in the right arm. Heart S1-S2, regular rate, no murmur heart. Lungs clear. Abdomen soft, nontender, nondistended. Extremities no edema Labs Laboratory Tests Test 01/03/23 15:20 01/04/23 05:32 Range/Units Vancomycin Level Trough 14.8 10.0-20.0 UG/ML White Blood Count 10.5 4.3-11.0 10^3/uL Red Blood Count 4.45 4.30-5.52 10^6/uL Hemoglobin 12.0 L 13.3-17.7 g/dL Hematocrit 38 L 40-54 % Mean Corpuscular Volume 84 80-99 fL Mean Corpuscular Hemoglobin 27 25-34 pg Mean Corpuscular Hemoglobin Concent 32 32-36 g/dL Red Cell Distribution Width 14.6 H 10.0-14.5 % Platelet Count 342 130-400 10^3/uL Mean Platelet Volume 10.3 9.0-12.2 fL Sodium Level 141 135-145 MMOL/L Potassium Level 3.4 L 3.6-5.0 MMOL/L Chloride Level 113 H 98-107 MMOL/L Carbon Dioxide Level 23 21-32 MMOL/L Anion Gap 5 5-14 MMOL/L Blood Urea Nitrogen 6 L 7-18 MG/DL Creatinine 0.67 0.60-1.30 MG/DL Estimat Glomerular Filtration Rate 117 BUN/Creatinine Ratio 9 Glucose Level 114 H 70-105 MG/DL Calcium Level 8.0 L 8.5-10.1 MG/DL A/P-Cardiology Admission Diagnosis Sepsis with staph bacteremia IVC thrombosis Pneumonia Constipation IV drug use Assessment/Plan Sepsis with staph bacteremia, currently on IV antibiotics. 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 Started on Eliquis 10 mg twice daily May require thrombectomy and extraction of his filter Pneumonia, management per medical services IV methamphetamine use MORIAH APODACA MD Jan 04, 2023 13:01
[2023-01-04] MEDS: CELECOXIB 100 MG CAPSULE PO SCH (19:42)
[2023-01-05 03:06] VITALS: BP 117/89
[2023-01-05] MEDS: ACETAMINOPHEN 500 MG TABLET PO PRN ×2 (04:41→19:18)
[2023-01-05 05:36] LABS: HEMATOCRIT 37 % (40-54); HEMOGLOBIN 11.5 g/dL (13.3-17.7); MEAN CORPUSCULAR HEMOGLOBIN 27 pg (25-34); MEAN CORPUSCULAR HGB CONC 31 g/dL (32-36); MEAN CORPUSCULAR VOLUME 86 fL (80-99); MEAN PLATELET VOLUME 10.2 fL (9.0-12.2); PLATELET COUNT 361 10^3/uL (130-400); WHITE BLOOD COUNT 9.8 10^3/uL (4.3-11.0)
[2023-01-05 05:53] LABS: POTASSIUM 3.4 MMOL/L (3.6-5.0)
[2023-01-05 05:55] LABS: CALCIUM 8.1 MG/DL (8.5-10.1)
[2023-01-05 05:59] LABS: CREATININE SERUM 0.73 MG/DL (0.60-1.30)
[2023-01-05 07:25] VITALS: BP 167/81
[2023-01-05] MEDS: NICOTINE 14 MG PATCH TD SCH (08:14)
[2023-01-05] MEDS: CELECOXIB 100 MG CAPSULE PO SCH ×2 (08:14→19:12)
[2023-01-05] MEDS: NS IV 1000 ML 1,000 ML IV SCH (08:14)
[2023-01-05] MEDS: VANCOMYCIN 1250 MG/NS 250 ML PREMIX IV SCH ×2 (08:14→16:37)
[2023-01-05] MEDS: DOCUSATE SODIUM 100 MG CAPSULE PO SCH ×2 (08:15→19:12)
[2023-01-05] MEDS: APIXABAN 5 MG TABLET PO SCH ×2 (08:15→19:12)
[2023-01-05] MEDS: SENNOSIDES 8.6 MG TABLET PO PRN (08:17)
[2023-01-05] MEDS: NICOTINE PATCH REMOVAL TP SCH (08:20)
[2023-01-05 11:29] VITALS: BP 117/80
[2023-01-05] MEDS ORDERED: POTASSIUM CHLORIDE 20 MEQ TABLET PO ONE (12:00)
--- NOTE | 2023-01-05 12:05 | Cardiology Progress Note ---
Subjective Date Seen by Provider: Jan 05, 2023 Time Seen by Provider: 12:02 Subjective/Events-last exam No new complaints. No shortness of breath or chest pain. Review of Systems General: No Chills, No Night Sweats, No Fatigue, No Malaise, No Appetite, No Other HEENT: No Head Aches, No Visual Changes, No Eye Pain, No Ear Pain, No Dysphasia, No Sinus Congestion, No Post Nasal Drip, No Sore Throat, No Other Pulmonary: No Dyspnea, No Cough, No Pleuritic Chest Pain, No Other Cardiovascular: No: Chest Pain, Palpitations, Orthopnea, Paroxysmal Noc. Dyspnea, Edema, Lt Headedness, Other Gastrointestinal: No: Nausea, Vomiting, Abdominal Pain, Diarrhea, Constipation, Melena, Hematochezia, Other Genitourinary: No Dysuria, No Frequency, No Incontinence, No Hematuria, No Retention, No Other Musculoskeletal: No: other, neck pain, shoulder pain, arm pain, back pain, hand pain, leg pain, foot pain Neurological: No: Weakness, Numbness, Incoordination, Change in speech, Confusion, Seizures, Other Exam Vital Signs Vital Signs Date Time Temp Pulse Resp B/P (MAP) Pulse Ox O2 Delivery O2 Flow Rate FiO2 01/05/23 11:29 36.1 82 16 117/80 (92) 97 Room Air 01/02/23 12:22 6.00 12/30/22 19:19 21 Physical Exam Alert oriented, no distress. Neck supple, no JVD. Lungs decreased breath sounds bilaterally. Heart: S1-S2, regular rhythm, no murmurs. Abdomen soft nontender. Extremities no edema. Labs Laboratory Tests Test 01/05/23 05:15 Range/Units White Blood Count 9.8 4.3-11.0 10^3/uL Red Blood Count 4.34 4.30-5.52 10^6/uL Hemoglobin 11.5 L 13.3-17.7 g/dL Hematocrit 37 L 40-54 % Mean Corpuscular Volume 86 80-99 fL Mean Corpuscular Hemoglobin 27 25-34 pg Mean Corpuscular Hemoglobin Concent 31 L 32-36 g/dL Red Cell Distribution Width 14.8 H 10.0-14.5 % Platelet Count 361 130-400 10^3/uL Mean Platelet Volume 10.2 9.0-12.2 fL Sodium Level 142 135-145 MMOL/L Potassium Level 3.4 L 3.6-5.0 MMOL/L Chloride Level 112 H 98-107 MMOL/L Carbon Dioxide Level 24 21-32 MMOL/L Anion Gap 6 5-14 MMOL/L Blood Urea Nitrogen 6 L 7-18 MG/DL Creatinine 0.73 0.60-1.30 MG/DL Estimat Glomerular Filtration Rate 114 BUN/Creatinine Ratio 8 Glucose Level 107 H 70-105 MG/DL Calcium Level 8.1 L 8.5-10.1 MG/DL A/P-Cardiology Admission Diagnosis Sepsis with staph bacteremia IVC thrombosis Hypokalemia Pneumonia Constipation IV drug use Assessment/Plan Sepsis with staph bacteremia, currently on IV antibiotics. 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 Started on Eliquis 10 mg twice daily May require thrombectomy and extraction of his filter No evidence of possible thrombus embolization into pulmonary artery. Hypokalemia: Replace potassium Pneumonia, management per medical services IV methamphetamine use MORIAH APODACA MD Jan 05, 2023 12:04
--- NOTE | 2023-01-05 12:44 | Progress Note - Hospitalist ---
Subjective HPI/CC On Admission Time Seen by Provider: 09:30 Pt is a 47 y/o male who presented to the ER yesterday by his cousin with back/R flank pain that gradually moved into the RUQ. He states that his pain started the day before and that it worsened in the morning to the point that it was a constant pain. He states that his pain worsens when taking a deep breath and it is very intense when he coughs. He reports a mostly nonproductive, infrequent cough although he was able to produce some phelgm last night (unsure what color). He denies any trauma to the area. Denies nausea or vomiting or any hx of blood clots. Hx of GERD and does not currently take any meds for it. Last BM was 5 days ago which he states is normal for him, he has long struggled with constipation. Denies any prior abd surgeries. He is a current tobacco smoker (alternating how much 2ppd-1 ppd to a few cigarettes per day) since the age of 16. 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 Subjective/Events-last exam Patient reports feeling well denies night sweats chills fever or fatigue denies leg pain or abdominal pain. Objective Exam Vital Signs Vital Signs Date Time Temp Pulse Resp B/P (MAP) Pulse Ox O2 Delivery O2 Flow Rate FiO2 01/05/23 12:31 77 01/05/23 11:29 36.1 16 117/80 (92) 97 Room Air 01/02/23 12:22 6.00 12/30/22 19:19 21 Capillary Refill : Less Than 3 Seconds General Appearance: No Apparent Distress Respiratory: Chest Non Tender, Lungs Clear, Normal Breath Sounds, No Accessory Muscle Use, No Respiratory Distress Cardiovascular: Regular Rate, Rhythm, No Edema, No Gallop, No JVD, No Murmur, Normal Peripheral Pulses Extremity: Other (Right lower extremity no cyanosis clubbing or edema) Results/Procedures Lab Laboratory Tests 01/05/23 05:15 Patient resulted labs reviewed. Assessment/Plan Assessment and Plan Assess & Plan/Chief Complaint Right upper lobe pneumonia involving the minor fissure as well with MRSA sepsis. Sepsis is resolved white count normalizing with no evidence for endocarditis on LESLIE. Advised Minimum 7 days of IV antibiotics and also discussed concerns that if there was recurrence of symptoms after finishing IV vancomycin he would likely need 4 to 6 weeks of IV antibiotics with strong concern for infected thr ombus noted below his IVC filter or an infected filter itself considering unremarkable LESLIE.Today bowers day 5 of vancomycin therapy. Patient reports significant improvement in right upper quadrant and right lower chest pain after the initiation of Celebrex 100 mg every 12 suggesting underlying pleuritic etiology of this pain. 2. Right upper quadrant abdominal pain CT scan reveals a large but simple appearing cyst in the right kidney only if there is acute hemorrhage with this potentially be a site we did discuss diaphragmatic irritation from his pneumonia as being likely as there is a pleuritic component considering negative CT scan of the abdomen as well as sonogram liver or biliary etiology is unlikely. Will add Celebrex considering ongoing need for Eliquis and as needed Tylenol. 3. Constipation we will increase MiraLAX to 17 g twice daily given extra dose now. We will discontinue Dilaudid. EDITA FRASER MD Jan 05, 2023 12:43
[2023-01-05 15:22] VITALS: BP 133/83
[2023-01-05 20:46] VITALS: BP 137/90
[2023-01-05 23:04] VITALS: BP 128/79
[2023-01-06] VITALS (7 sets, daily range): BP systolic 115–136; BP diastolic 77–85
[2023-01-06 06:15] LABS: HEMATOCRIT 38 % (40-54); HEMOGLOBIN 12.1 g/dL (13.3-17.7); MEAN CORPUSCULAR HEMOGLOBIN 27 pg (25-34); MEAN CORPUSCULAR HGB CONC 32 g/dL (32-36); MEAN CORPUSCULAR VOLUME 84 fL (80-99); MEAN PLATELET VOLUME 10.8 fL (9.0-12.2); PLATELET COUNT 404 10^3/uL (130-400); WHITE BLOOD COUNT 11.7 10^3/uL (4.3-11.0)
[2023-01-06 06:39] LABS: POTASSIUM 3.7 MMOL/L (3.6-5.0)
[2023-01-06 06:40] LABS: CALCIUM 8.2 MG/DL (8.5-10.1)
[2023-01-06 06:45] LABS: CREATININE SERUM 0.7 MG/DL (0.60-1.30)
[2023-01-06] MEDS: CELECOXIB 100 MG CAPSULE PO SCH ×2 (08:17→19:59)
[2023-01-06] MEDS: NICOTINE PATCH REMOVAL TP SCH (08:17)
[2023-01-06] MEDS: NICOTINE 14 MG PATCH TD SCH (08:17)
[2023-01-06] MEDS: APIXABAN 5 MG TABLET PO SCH ×2 (08:17→19:59)
[2023-01-06] MEDS: DOCUSATE SODIUM 100 MG CAPSULE PO SCH ×2 (08:17→19:59)
--- NOTE | 2023-01-06 13:49 | Cardiology Progress Note ---
Subjective Date Seen by Provider: Jan 06, 2023 Time Seen by Provider: 13:45 Subjective/Events-last exam No significant changes. No shortness of breath Review of Systems General: No Chills, No Night Sweats, No Fatigue, No Malaise, No Appetite, No Other HEENT: No Head Aches, No Visual Changes, No Eye Pain, No Ear Pain, No Dysphasia, No Sinus Congestion, No Post Nasal Drip, No Sore Throat, No Other Pulmonary: No Dyspnea, No Cough, No Pleuritic Chest Pain, No Other Cardiovascular: No: Chest Pain, Palpitations, Orthopnea, Paroxysmal Noc. Dyspnea, Edema, Lt Headedness, Other Gastrointestinal: No: Nausea, Vomiting, Abdominal Pain, Diarrhea, Constipation, Melena, Hematochezia, Other Genitourinary: No Dysuria, No Frequency, No Incontinence, No Hematuria, No Retention, No Other Musculoskeletal: No: other, neck pain, shoulder pain, arm pain, back pain, hand pain, leg pain, foot pain Neurological: No: Weakness, Numbness, Incoordination, Change in speech, Confusion, Seizures, Other Exam Vital Signs Vital Signs Date Time Temp Pulse Resp B/P (MAP) Pulse Ox O2 Delivery O2 Flow Rate FiO2 01/06/23 12:15 80 01/06/23 11:24 36.8 16 119/79 (92) 95 Room Air 01/06/23 08:25 6.00 Physical Exam Alert oriented. No acute distress. Neck supple, no JVD Lungs: Decreased breath sounds at bases. Heart: S1-S2, regular rate. Abdomen soft nontender. Extremities no edema Labs Laboratory Tests Test 01/06/23 05:35 Range/Units White Blood Count 11.7 H 4.3-11.0 10^3/uL Red Blood Count 4.50 4.30-5.52 10^6/uL Hemoglobin 12.1 L 13.3-17.7 g/dL Hematocrit 38 L 40-54 % Mean Corpuscular Volume 84 80-99 fL Mean Corpuscular Hemoglobin 27 25-34 pg Mean Corpuscular Hemoglobin Concent 32 32-36 g/dL Red Cell Distribution Width 14.8 H 10.0-14.5 % Platelet Count 404 H 130-400 10^3/uL Mean Platelet Volume 10.8 9.0-12.2 fL Sodium Level 142 135-145 MMOL/L Potassium Level 3.7 3.6-5.0 MMOL/L Chloride Level 112 H 98-107 MMOL/L Carbon Dioxide Level 24 21-32 MMOL/L Anion Gap 6 5-14 MMOL/L Blood Urea Nitrogen 5 L 7-18 MG/DL Creatinine 0.70 0.60-1.30 MG/DL Estimat Glomerular Filtration Rate 115 BUN/Creatinine Ratio 7 Glucose Level 85 70-105 MG/DL Calcium Level 8.2 L 8.5-10.1 MG/DL A/P-Cardiology Admission Diagnosis Sepsis with staph bacteremia IVC thrombosis Hypokalemia Pneumonia Constipation IV drug use Assessment/Plan Sepsis with staph bacteremia, currently on IV antibiotics. 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 Started on Eliquis 10 mg twice daily May require thrombectomy and extraction of his filter No evidence of possible thrombus embolization into pulmonary artery. Hypokalemia: Resolved Pneumonia, management per medical services IV methamphetamine use MORIAH APODACA MD Jan 06, 2023 13:49
--- NOTE | 2023-01-06 16:15 | Progress Note - Hospitalist ---
Subjective HPI/CC On Admission Date Seen by Provider: Jan 06, 2023 Time Seen by Provider: 09:10 Pt is a 47 y/o male who presented to the ER yesterday by his cousin with back/R flank pain that gradually moved into the RUQ. He states that his pain started the day before and that it worsened in the morning to the point that it was a constant pain. He states that his pain worsens when taking a deep breath and it is very intense when he coughs. He reports a mostly nonproductive, infrequent cough although he was able to produce some phelgm last night (unsure what color). He denies any trauma to the area. Denies nausea or vomiting or any hx of blood clots. Hx of GERD and does not currently take any meds for it. Last BM was 5 days ago which he states is normal for him, he has long struggled with constipation. Denies any prior abd surgeries. He is a current tobacco smoker (alternating how much 2ppd-1 ppd to a few cigarettes per day) since the age of 16. 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 Subjective/Events-last exam He is feeling ok. He has no complaints. Objective Exam Vital Signs Vital Signs Date Time Temp Pulse Resp B/P (MAP) Pulse Ox O2 Delivery O2 Flow Rate FiO2 01/06/23 15:41 37.2 72 18 129/82 (98) 97 Room Air 01/06/23 08:25 6.00 Capillary Refill : Less Than 3 Seconds General Appearance: No Apparent Distress, WD/WN Respiratory: Lungs Clear, No Respiratory Distress Cardiovascular: Regular Rate, Rhythm, No Murmur Gastrointestinal: Normal Bowel Sounds, Soft Extremity: Normal Inspection, No Pedal Edema Neurologic/Psychiatric: Alert, Normal Mood/Affect Results/Procedures Lab Laboratory Tests 01/06/23 05:35 Patient resulted labs reviewed. Assessment/Plan Assessment and Plan Assess & Plan/Chief Complaint Sepsis, present on arrival MRSA bacteremia PNA MRSA UTI Methamphetamine abuse IV drug abuse IVC thrombosis IVC filter present Blood cultures with persistent Staph aureus bacteremia Latest blood cultures with no growth to date Echo without evidence of endocarditis, IVC thrombus present Continue Vancomycin IDSA guidelines recommend IV antibiotics for at least 2 weeks Unable to complete outpatient due to high risk with IV drug abuse Eliquis Cardology following Diagnosis/Problems Diagnosis/Problems (1) Sepsis Status: Acute (2) MRSA bacteremia Status: Acute (3) UTI (urinary tract infection) Status: Acute (4) PNA (pneumonia) Status: Acute (5) IV drug abuse Status: Acute (6) Methamphetamine abuse Status: Acute (7) IVC thrombosis Status: Acute (8) Presence of IVC filter Status: Chronic MALACHI AGUIRRE MD Jan 06, 2023 16:15
[2023-01-07] MEDS: ACETAMINOPHEN 500 MG TABLET PO PRN (02:10)
[2023-01-07 03:36] VITALS: BP 119/73
[2023-01-07 05:45] LABS: HEMATOCRIT 38 % (40-54); HEMOGLOBIN 12.3 g/dL (13.3-17.7); MEAN CORPUSCULAR HEMOGLOBIN 27 pg (25-34); MEAN CORPUSCULAR HGB CONC 32 g/dL (32-36); MEAN CORPUSCULAR VOLUME 83 fL (80-99); MEAN PLATELET VOLUME 9.8 fL (9.0-12.2); PLATELET COUNT 414 10^3/uL (130-400); WHITE BLOOD COUNT 11.8 10^3/uL (4.3-11.0)
[2023-01-07 05:58] LABS: POTASSIUM 3.8 MMOL/L (3.6-5.0)
[2023-01-07 05:59] LABS: CALCIUM 8.2 MG/DL (8.5-10.1)
[2023-01-07 06:03] LABS: CREATININE SERUM 0.67 MG/DL (0.60-1.30)
[2023-01-07 07:29] VITALS: BP 131/91
[2023-01-07] MEDS: DOCUSATE SODIUM 100 MG CAPSULE PO SCH ×2 (09:12→21:49)
[2023-01-07] MEDS: CELECOXIB 100 MG CAPSULE PO SCH ×2 (09:12→20:15)
[2023-01-07] MEDS: NICOTINE 14 MG PATCH TD SCH (09:12)
[2023-01-07] MEDS: NICOTINE PATCH REMOVAL TP SCH (09:13)
[2023-01-07] MEDS: APIXABAN 5 MG TABLET PO SCH ×2 (09:13→20:15)
[2023-01-07] MEDS ORDERED: VANCOMYCIN INJECTION 0.1 MG in NS (IVPB) 250 ML 250 ML IV SCH (09:15)
[2023-01-07] MEDS ORDERED: VANCOMYCIN 1500MG/300ML PREMIX IV NR (09:30)
--- NOTE | 2023-01-07 10:34 | Progress Note - Hospitalist ---
Subjective HPI/CC On Admission Date Seen by Provider: Jan 07, 2023 Time Seen by Provider: 08:55 Pt is a 47 y/o male who presented to the ER yesterday by his cousin with back/R flank pain that gradually moved into the RUQ. He states that his pain started the day before and that it worsened in the morning to the point that it was a constant pain. He states that his pain worsens when taking a deep breath and it is very intense when he coughs. He reports a mostly nonproductive, infrequent cough although he was able to produce some phelgm last night (unsure what color). He denies any trauma to the area. Denies nausea or vomiting or any hx of blood clots. Hx of GERD and does not currently take any meds for it. Last BM was 5 days ago which he states is normal for him, he has long struggled with constipation. Denies any prior abd surgeries. He is a current tobacco smoker (alternating how much 2ppd-1 ppd to a few cigarettes per day) since the age of 16. 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 Subjective/Events-last exam He has no complaints. He denies shortness of breath. He denies pain. Objective Exam Vital Signs Vital Signs Date Time Temp Pulse Resp B/P (MAP) Pulse Ox O2 Delivery O2 Flow Rate FiO2 01/07/23 08:08 97 Room Air 01/07/23 07:29 36.5 74 17 131/91 (104) 01/06/23 08:25 6.00 Capillary Refill : Less Than 3 Seconds General Appearance: No Apparent Distress, WD/WN Respiratory: Lungs Clear, No Respiratory Distress Cardiovascular: Regular Rate, Rhythm, No Murmur Gastrointestinal: Normal Bowel Sounds, Soft Extremity: Normal Inspection, No Pedal Edema Neurologic/Psychiatric: Alert, Normal Mood/Affect Results/Procedures Lab Laboratory Tests 01/07/23 05:35 Patient resulted labs reviewed. Assessment/Plan Assessment and Plan Assess & Plan/Chief Complaint Sepsis, present on arrival MRSA bacteremia PNA MRSA UTI Methamphetamine abuse IV drug abuse IVC thrombosis IVC filter present Blood cultures with persistent Staph aureus bacteremia Latest blood cultures with no growth to date Echo without evidence of endocarditis, IVC thrombus present Continue Vancomycin IDSA guidelines recommend IV antibiotics for at least 2 weeks Unable to complete outpatient due to high risk with IV drug abuse Eliquis Cardology following Diagnosis/Problems Diagnosis/Problems (1) Sepsis Status: Acute (2) MRSA bacteremia Status: Acute (3) UTI (urinary tract infection) Status: Acute (4) PNA (pneumonia) Status: Acute (5) IV drug abuse Status: Acute (6) Methamphetamine abuse Status: Acute (7) IVC thrombosis Status: Acute (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
[2023-01-07 11:13] VITALS: BP 129/89
[2023-01-07] MEDS: oxyCODONE IMMEDIATE RELEASE 5 MG TABLET PO PRN ×2 (12:11→20:17)
--- NOTE | 2023-01-07 14:31 | Cardiology Progress Note ---
Subjective Date Seen by Provider: Jan 07, 2023 Time Seen by Provider: 11:10 Subjective/Events-last exam No significant changes. No new complaints Exam Vital Signs Vital Signs Date Time Temp Pulse Resp B/P (MAP) Pulse Ox O2 Delivery O2 Flow Rate FiO2 01/07/23 12:07 82 01/07/23 11:13 36.5 17 129/89 (102) 96 Room Air 01/06/23 08:25 6.00 Physical Exam Alert oriented, no distress. Neck supple, no JVD. Lungs decreased breath sounds bilaterally. Heart: S1-S2, regular rhythm. Extremities no edema Labs Laboratory Tests Test 01/07/23 05:35 Range/Units White Blood Count 11.8 H 4.3-11.0 10^3/uL Red Blood Count 4.64 4.30-5.52 10^6/uL Hemoglobin 12.3 L 13.3-17.7 g/dL Hematocrit 38 L 40-54 % Mean Corpuscular Volume 83 80-99 fL Mean Corpuscular Hemoglobin 27 25-34 pg Mean Corpuscular Hemoglobin Concent 32 32-36 g/dL Red Cell Distribution Width 14.6 H 10.0-14.5 % Platelet Count 414 H 130-400 10^3/uL Mean Platelet Volume 9.8 9.0-12.2 fL Sodium Level 141 135-145 MMOL/L Potassium Level 3.8 3.6-5.0 MMOL/L Chloride Level 109 H 98-107 MMOL/L Carbon Dioxide Level 25 21-32 MMOL/L Anion Gap 7 5-14 MMOL/L Blood Urea Nitrogen 11 7-18 MG/DL Creatinine 0.67 0.60-1.30 MG/DL Estimat Glomerular Filtration Rate 117 BUN/Creatinine Ratio 16 Glucose Level 92 70-105 MG/DL Calcium Level 8.2 L 8.5-10.1 MG/DL A/P-Cardiology Admission Diagnosis Sepsis with staph bacteremia IVC thrombosis Hypokalemia Pneumonia Constipation IV drug use Assessment/Plan Sepsis with staph bacteremia, currently on IV antibiotics. 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 Started on Eliquis 10 mg twice daily May require thrombectomy and extraction of his filter No evidence of possible thrombus embolization into pulmonary artery. Pneumonia, management per medical services IV methamphetamine use MORIAH APODACA MD Jan 07, 2023 14:31
[2023-01-07 15:43] VITALS: BP 125/92
[2023-01-07] MEDS: VANCOMYCIN 1250 MG/NS 250 ML PREMIX IV SCH (17:08)
[2023-01-07 19:03] VITALS: BP 145/86
[2023-01-07 23:02] VITALS: BP 106/69
[2023-01-08] MEDS: VANCOMYCIN 1250 MG/NS 250 ML PREMIX IV SCH ×2 (01:34→09:32)
[2023-01-08] MEDS: oxyCODONE IMMEDIATE RELEASE 5 MG TABLET PO PRN (03:00)
[2023-01-08 03:02] VITALS: BP 110/75
[2023-01-08 05:36] LABS: POTASSIUM 4.2 MMOL/L (3.6-5.0)
[2023-01-08 05:37] LABS: CALCIUM 8.5 MG/DL (8.5-10.1)
[2023-01-08 05:42] LABS: CREATININE SERUM 0.79 MG/DL (0.60-1.30)
[2023-01-08 06:36] LABS: HEMATOCRIT 43 % (40-54); HEMOGLOBIN 13.7 g/dL (13.3-17.7); MEAN CORPUSCULAR HEMOGLOBIN 27 pg (25-34); MEAN CORPUSCULAR HGB CONC 32 g/dL (32-36); MEAN CORPUSCULAR VOLUME 84 fL (80-99); MEAN PLATELET VOLUME 9.8 fL (9.0-12.2); PLATELET COUNT 471 10^3/uL (130-400); WHITE BLOOD COUNT 10.7 10^3/uL (4.3-11.0)
[2023-01-08 07:40] VITALS: BP 120/76
[2023-01-08] MEDS ORDERED: TROUGH ORDER-PHARMACY XX NR (08:30)
[2023-01-08] MEDS: CELECOXIB 100 MG CAPSULE PO SCH ×2 (08:47→20:35)
[2023-01-08] MEDS: APIXABAN 5 MG TABLET PO SCH ×2 (08:47→20:35)
[2023-01-08] MEDS: NICOTINE 14 MG PATCH TD SCH (08:48)
[2023-01-08] MEDS: DOCUSATE SODIUM 100 MG CAPSULE PO SCH ×2 (08:56→20:35)
[2023-01-08] MEDS: NICOTINE PATCH REMOVAL TP SCH (08:56)
[2023-01-08 11:16] VITALS: BP 123/76
--- NOTE | 2023-01-08 12:06 | Progress Note - Hospitalist ---
Subjective HPI/CC On Admission Date Seen by Provider: Jan 08, 2023 Time Seen by Provider: 09:50 Pt is a 47 y/o male who presented to the ER yesterday by his cousin with back/R flank pain that gradually moved into the RUQ. He states that his pain started the day before and that it worsened in the morning to the point that it was a constant pain. He states that his pain worsens when taking a deep breath and it is very intense when he coughs. He reports a mostly nonproductive, infrequent cough although he was able to produce some phelgm last night (unsure what color). He denies any trauma to the area. Denies nausea or vomiting or any hx of blood clots. Hx of GERD and does not currently take any meds for it. Last BM was 5 days ago which he states is normal for him, he has long struggled with constipation. Denies any prior abd surgeries. He is a current tobacco smoker (alternating how much 2ppd-1 ppd to a few cigarettes per day) since the age of 16. 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 Subjective/Events-last exam He is feeling well. He has no complaints. Objective Exam Vital Signs Vital Signs Date Time Temp Pulse Resp B/P (MAP) Pulse Ox O2 Delivery O2 Flow Rate FiO2 01/08/23 11:16 36.4 69 17 123/76 (92) 97 Room Air 01/06/23 08:25 6.00 Capillary Refill : Less Than 3 Seconds General Appearance: No Apparent Distress, WD/WN Respiratory: Lungs Clear, No Respiratory Distress Cardiovascular: Regular Rate, Rhythm, No Murmur Gastrointestinal: Normal Bowel Sounds, Soft Extremity: Normal Inspection, No Pedal Edema Neurologic/Psychiatric: Alert, Normal Mood/Affect Results/Procedures Lab Laboratory Tests 01/08/23 05:12 Patient resulted labs reviewed. Assessment/Plan Assessment and Plan Assess & Plan/Chief Complaint Sepsis, present on arrival MRSA bacteremia PNA MRSA UTI Methamphetamine abuse IV drug abuse IVC thrombosis IVC filter present Blood cultures with persistent Staph aureus bacteremia Latest blood cultures with no growth to date Echo without evidence of endocarditis, IVC thrombus present Continue Vancomycin IDSA guidelines recommend IV antibiotics for at least 2 weeks Unable to complete outpatient due to high risk with IV drug abuse Eliquis Cardology following Diagnosis/Problems Diagnosis/Problems (1) Sepsis Status: Acute (2) MRSA bacteremia Status: Acute (3) UTI (urinary tract infection) Status: Acute (4) PNA (pneumonia) Status: Acute (5) IV drug abuse Status: Acute (6) Methamphetamine abuse Status: Acute (7) IVC thrombosis Status: Acute (8) Presence of IVC filter Status: Chronic MALACHI AGUIRRE MD Jan 08, 2023 12:06
[2023-01-08 16:40] VITALS: BP 110/74
[2023-01-08 19:58] VITALS: BP 124/84
[2023-01-08] MEDS: VANCOMYCIN 1 GM/NS 250 ML IVPB IV SCH ×2 (22:01)
[2023-01-08 23:11] VITALS: BP 122/85
[2023-01-09 04:32] VITALS: BP 138/76
[2023-01-09 05:40] LABS: HEMATOCRIT 41 % (40-54); HEMOGLOBIN 13.2 g/dL (13.3-17.7); MEAN CORPUSCULAR HEMOGLOBIN 27 pg (25-34); MEAN CORPUSCULAR HGB CONC 32 g/dL (32-36); MEAN CORPUSCULAR VOLUME 83 fL (80-99); MEAN PLATELET VOLUME 9.7 fL (9.0-12.2); PLATELET COUNT 464 10^3/uL (130-400); WHITE BLOOD COUNT 11.7 10^3/uL (4.3-11.0)
[2023-01-09] MEDS: VANCOMYCIN 1 GM/NS 250 ML IVPB IV SCH ×6 (05:51→19:32)
[2023-01-09] MEDS: ACETAMINOPHEN 500 MG TABLET PO PRN (05:56)
[2023-01-09 06:01] LABS: POTASSIUM 4.2 MMOL/L (3.6-5.0)
[2023-01-09 06:02] LABS: CALCIUM 8.6 MG/DL (8.5-10.1)
[2023-01-09 06:06] LABS: CREATININE SERUM 0.82 MG/DL (0.60-1.30)
[2023-01-09 07:23] VITALS: BP 118/78
[2023-01-09] MEDS: DOCUSATE SODIUM 100 MG CAPSULE PO SCH ×2 (09:00→19:33)
[2023-01-09] MEDS: NICOTINE 14 MG PATCH TD SCH (09:17)
[2023-01-09] MEDS: CELECOXIB 100 MG CAPSULE PO SCH ×2 (09:18→19:32)
[2023-01-09] MEDS: APIXABAN 5 MG TABLET PO SCH ×2 (09:18→19:32)
[2023-01-09] MEDS: NICOTINE PATCH REMOVAL TP SCH (09:18)
[2023-01-09 11:57] VITALS: BP 110/68
[2023-01-09 15:46] VITALS: BP 125/74
--- NOTE | 2023-01-09 16:46 | Progress Note - Hospitalist ---
Subjective HPI/CC On Admission Date Seen by Provider: Jan 09, 2023 Time Seen by Provider: 12:45 Pt is a 47 y/o male who presented to the ER yesterday by his cousin with back/R flank pain that gradually moved into the RUQ. He states that his pain started the day before and that it worsened in the morning to the point that it was a constant pain. He states that his pain worsens when taking a deep breath and it is very intense when he coughs. He reports a mostly nonproductive, infrequent cough although he was able to produce some phelgm last night (unsure what color). He denies any trauma to the area. Denies nausea or vomiting or any hx of blood clots. Hx of GERD and does not currently take any meds for it. Last BM was 5 days ago which he states is normal for him, he has long struggled with constipation. Denies any prior abd surgeries. He is a current tobacco smoker (alternating how much 2ppd-1 ppd to a few cigarettes per day) since the age of 16. 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 Subjective/Events-last exam He is feeling well. He has no complaints. Objective Exam Vital Signs Vital Signs Date Time Temp Pulse Resp B/P (MAP) Pulse Ox O2 Delivery O2 Flow Rate FiO2 01/09/23 15:46 36.6 86 18 125/74 (91) 97 Room Air 01/09/23 04:32 0.00 0.00 Capillary Refill : Less Than 3 Seconds General Appearance: No Apparent Distress, WD/WN Respiratory: Lungs Clear, No Respiratory Distress Cardiovascular: Regular Rate, Rhythm, No Murmur Gastrointestinal: Normal Bowel Sounds, Soft Extremity: Normal Inspection, No Pedal Edema Neurologic/Psychiatric: Alert, Normal Mood/Affect Results/Procedures Lab Laboratory Tests 01/09/23 05:25 Patient resulted labs reviewed. Assessment/Plan Assessment and Plan Assess & Plan/Chief Complaint Sepsis, present on arrival MRSA bacteremia PNA MRSA UTI Methamphetamine abuse IV drug abuse IVC thrombosis IVC filter present Blood cultures with persistent Staph aureus bacteremia Latest blood cultures with no growth to date Echo without evidence of endocarditis, IVC thrombus present Continue Vancomycin IDSA guidelines recommend IV antibiotics for at least 2 weeks Unable to complete outpatient due to high risk with IV drug abuse Eliquis Cardology following Diagnosis/Problems Diagnosis/Problems (1) Sepsis Status: Acute (2) MRSA bacteremia Status: Acute (3) UTI (urinary tract infection) Status: Acute (4) PNA (pneumonia) Status: Acute (5) IV drug abuse Status: Acute (6) Methamphetamine abuse Status: Acute (7) IVC thrombosis Status: Acute (8) Presence of IVC filter Status: Chronic MALACHI AGUIRRE MD Jan 09, 2023 16:46
[2023-01-09 19:55] VITALS: BP 119/80
[2023-01-09 23:01] VITALS: BP 121/77
[2023-01-09] MEDS: oxyCODONE IMMEDIATE RELEASE 5 MG TABLET PO PRN (23:03)
[2023-01-10 04:19] VITALS: BP 97/54
[2023-01-10] MEDS: VANCOMYCIN 1 GM/NS 250 ML IVPB IV SCH ×6 (04:20→20:05)
[2023-01-10 05:29] LABS: HEMATOCRIT 40 % (40-54); MEAN CORPUSCULAR HEMOGLOBIN 27 pg (25-34); MEAN CORPUSCULAR HGB CONC 32 g/dL (32-36); MEAN CORPUSCULAR VOLUME 83 fL (80-99); MEAN PLATELET VOLUME 9.7 fL (9.0-12.2); PLATELET COUNT 429 10^3/uL (130-400); WHITE BLOOD COUNT 11.5 10^3/uL (4.3-11.0)
[2023-01-10 05:53] LABS: POTASSIUM 4.1 MMOL/L (3.6-5.0)
[2023-01-10 05:54] LABS: CALCIUM 8.7 MG/DL (8.5-10.1)
[2023-01-10 05:58] LABS: CREATININE SERUM 0.73 MG/DL (0.60-1.30)
[2023-01-10 07:42] VITALS: BP 118/82
[2023-01-10] MEDS: NICOTINE PATCH REMOVAL TP SCH (08:40)
[2023-01-10] MEDS: APIXABAN 5 MG TABLET PO SCH ×2 (08:41→20:02)
[2023-01-10] MEDS: DOCUSATE SODIUM 100 MG CAPSULE PO SCH ×2 (08:41→20:02)
[2023-01-10] MEDS: NICOTINE 14 MG PATCH TD SCH (08:41)
[2023-01-10] MEDS: CELECOXIB 100 MG CAPSULE PO SCH ×2 (08:41→20:01)
[2023-01-10 11:52] VITALS: BP 109/73
[2023-01-10 15:22] VITALS: BP 109/73
--- NOTE | 2023-01-10 16:10 | Progress Note - Hospitalist ---
Subjective HPI/CC On Admission Date Seen by Provider: Jan 10, 2023 Time Seen by Provider: 12:25 Pt is a 47 y/o male who presented to the ER yesterday by his cousin with back/R flank pain that gradually moved into the RUQ. He states that his pain started the day before and that it worsened in the morning to the point that it was a constant pain. He states that his pain worsens when taking a deep breath and it is very intense when he coughs. He reports a mostly nonproductive, infrequent cough although he was able to produce some phelgm last night (unsure what color). He denies any trauma to the area. Denies nausea or vomiting or any hx of blood clots. Hx of GERD and does not currently take any meds for it. Last BM was 5 days ago which he states is normal for him, he has long struggled with constipation. Denies any prior abd surgeries. He is a current tobacco smoker (alternating how much 2ppd-1 ppd to a few cigarettes per day) since the age of 16. 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 Subjective/Events-last exam He is feeling well. He would like something to help sleep at night. Objective Exam Vital Signs Vital Signs Date Time Temp Pulse Resp B/P (MAP) Pulse Ox O2 Delivery O2 Flow Rate FiO2 01/10/23 15:22 36.5 89 96 21 01/10/23 15:19 Room Air 0.00 01/10/23 11:52 18 109/73 (85) Capillary Refill : Less Than 3 Seconds General Appearance: No Apparent Distress, WD/WN Respiratory: Lungs Clear, No Respiratory Distress Cardiovascular: Regular Rate, Rhythm, No Murmur Gastrointestinal: Normal Bowel Sounds, Soft Extremity: Normal Inspection, No Pedal Edema Neurologic/Psychiatric: Alert, Normal Mood/Affect Skin: Normal Color, Warm/Dry Results/Procedures Lab Laboratory Tests 01/10/23 05:13 Patient resulted labs reviewed. Assessment/Plan Assessment and Plan Assess & Plan/Chief Complaint Sepsis, present on arrival MRSA bacteremia PNA MRSA UTI Methamphetamine abuse IV drug abuse IVC thrombosis IVC filter present Blood cultures with persistent Staph aureus bacteremia Latest blood cultures with no growth to date Echo without evidence of endocarditis, IVC thrombus present Continue Vancomycin IDSA guidelines recommend IV antibiotics for at least 2 weeks Unable to complete outpatient due to high risk with IV drug abuse Eliquis Cardology following Diagnosis/Problems Diagnosis/Problems (1) Sepsis Status: Acute (2) MRSA bacteremia Status: Acute (3) UTI (urinary tract infection) Status: Acute (4) PNA (pneumonia) Status: Acute (5) IV drug abuse Status: Acute (6) Methamphetamine abuse Status: Acute (7) IVC thrombosis Status: Acute (8) Presence of IVC filter Status: Chronic MALACHI AGUIRRE MD Jan 10, 2023 16:09
[2023-01-10] MEDS ORDERED: ZOLPIDEM 5 MG (AMBIEN) TAB PO PRN (16:15)
[2023-01-10 16:49] VITALS: BP 128/69
[2023-01-10 19:28] VITALS: BP 129/65
[2023-01-10] MEDS: oxyCODONE IMMEDIATE RELEASE 5 MG TABLET PO PRN (22:12)
[2023-01-11] VITALS (7 sets, daily range): BP systolic 104–125; BP diastolic 66–84
[2023-01-11] MEDS: VANCOMYCIN 1 GM/NS 250 ML IVPB IV SCH ×6 (04:27→20:43)
[2023-01-11 05:31] LABS: HEMATOCRIT 41 % (40-54); HEMOGLOBIN 12.9 g/dL (13.3-17.7); MEAN CORPUSCULAR HEMOGLOBIN 27 pg (25-34); MEAN CORPUSCULAR HGB CONC 32 g/dL (32-36); MEAN CORPUSCULAR VOLUME 84 fL (80-99); MEAN PLATELET VOLUME 10.1 fL (9.0-12.2); PLATELET COUNT 413 10^3/uL (130-400); WHITE BLOOD COUNT 11.6 10^3/uL (4.3-11.0)
[2023-01-11 05:54] LABS: CREATININE SERUM 0.76 MG/DL (0.60-1.30); POTASSIUM 3.9 MMOL/L (3.6-5.0)
[2023-01-11] MEDS: NICOTINE 14 MG PATCH TD SCH (08:13)
[2023-01-11] MEDS: NICOTINE PATCH REMOVAL TP SCH (08:13)
[2023-01-11] MEDS: APIXABAN 5 MG TABLET PO SCH ×2 (08:13→20:44)
[2023-01-11] MEDS: DOCUSATE SODIUM 100 MG CAPSULE PO SCH ×2 (08:13→20:44)
[2023-01-11] MEDS: CELECOXIB 100 MG CAPSULE PO SCH ×2 (08:13→20:43)
--- NOTE | 2023-01-11 12:57 | Progress Note - Hospitalist ---
Subjective HPI/CC On Admission Date Seen by Provider: Jan 11, 2023 Time Seen by Provider: 11:50 Pt is a 47 y/o male who presented to the ER yesterday by his cousin with back/R flank pain that gradually moved into the RUQ. He states that his pain started the day before and that it worsened in the morning to the point that it was a constant pain. He states that his pain worsens when taking a deep breath and it is very intense when he coughs. He reports a mostly nonproductive, infrequent cough although he was able to produce some phelgm last night (unsure what color). He denies any trauma to the area. Denies nausea or vomiting or any hx of blood clots. Hx of GERD and does not currently take any meds for it. Last BM was 5 days ago which he states is normal for him, he has long struggled with constipation. Denies any prior abd surgeries. He is a current tobacco smoker (alternating how much 2ppd-1 ppd to a few cigarettes per day) since the age of 16. 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 Subjective/Events-last exam He is feeling well. He has no complaints. Objective Exam Vital Signs Vital Signs Date Time Temp Pulse Resp B/P (MAP) Pulse Ox O2 Delivery O2 Flow Rate FiO2 01/11/23 12:22 77 01/11/23 11:09 37.2 16 107/71 (83) Room Air 01/11/23 08:13 94 0.00 01/10/23 15:22 21 Capillary Refill : Less Than 3 Seconds General Appearance: No Apparent Distress, WD/WN Respiratory: Lungs Clear, No Respiratory Distress Cardiovascular: Regular Rate, Rhythm, No Murmur Gastrointestinal: Normal Bowel Sounds, Soft Extremity: Normal Inspection, No Pedal Edema Neurologic/Psychiatric: Alert, Normal Mood/Affect Results/Procedures Lab Laboratory Tests 01/11/23 05:20 Patient resulted labs reviewed. Assessment/Plan Assessment and Plan Assess & Plan/Chief Complaint Sepsis, present on arrival MRSA bacteremia PNA MRSA UTI Methamphetamine abuse IV drug abuse IVC thrombosis IVC filter present Blood cultures with persistent Staph aureus bacteremia Latest blood cultures with no growth to date Echo without evidence of endocarditis, IVC thrombus present Continue Vancomycin IDSA guidelines recommend IV antibiotics for at least 2 weeks Unable to complete outpatient due to high risk with IV drug abuse Eliquis Cardology following Diagnosis/Problems Diagnosis/Problems (1) Sepsis Status: Acute (2) MRSA bacteremia Status: Acute (3) UTI (urinary tract infection) Status: Acute (4) PNA (pneumonia) Status: Acute (5) IV drug abuse Status: Acute (6) Methamphetamine abuse Status: Acute (7) IVC thrombosis Status: Acute (8) Presence of IVC filter Status: Chronic MALACHI AGUIRRE MD Jan 11, 2023 12:57
[2023-01-11] MEDS: ZOLPIDEM 5 MG (AMBIEN) TAB PO SCH (20:43)
[2023-01-11] MEDS: oxyCODONE IMMEDIATE RELEASE 5 MG TABLET PO PRN (21:52)
[2023-01-12 03:20] VITALS: BP 122/71
[2023-01-12] MEDS: VANCOMYCIN 1 GM/NS 250 ML IVPB IV SCH ×6 (04:22→20:26)
[2023-01-12] MEDS: oxyCODONE IMMEDIATE RELEASE 5 MG TABLET PO PRN ×2 (04:23→21:58)
[2023-01-12 08:18] VITALS: BP 113/72
[2023-01-12] MEDS: CELECOXIB 100 MG CAPSULE PO SCH ×2 (08:32→20:26)
[2023-01-12] MEDS: DOCUSATE SODIUM 100 MG CAPSULE PO SCH ×2 (08:32→20:26)
[2023-01-12] MEDS: NICOTINE 14 MG PATCH TD SCH (08:32)
[2023-01-12] MEDS: NICOTINE PATCH REMOVAL TP SCH (08:32)
[2023-01-12] MEDS: APIXABAN 5 MG TABLET PO SCH ×2 (08:32→20:26)
[2023-01-12 12:09] VITALS: BP 105/71
--- NOTE | 2023-01-12 13:41 | Progress Note - Hospitalist ---
Subjective HPI/CC On Admission Date Seen by Provider: Jan 12, 2023 Time Seen by Provider: 11:30 Pt is a 47 y/o male who presented to the ER yesterday by his cousin with back/R flank pain that gradually moved into the RUQ. He states that his pain started the day before and that it worsened in the morning to the point that it was a constant pain. He states that his pain worsens when taking a deep breath and it is very intense when he coughs. He reports a mostly nonproductive, infrequent cough although he was able to produce some phelgm last night (unsure what color). He denies any trauma to the area. Denies nausea or vomiting or any hx of blood clots. Hx of GERD and does not currently take any meds for it. Last BM was 5 days ago which he states is normal for him, he has long struggled with constipation. Denies any prior abd surgeries. He is a current tobacco smoker (alternating how much 2ppd-1 ppd to a few cigarettes per day) since the age of [age]. 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 Subjective/Events-last exam He is doing well. He asks if he can go home today. He agrees to stay one more day to complete 14 days of Vancomycin. Objective Exam Vital Signs Vital Signs Date Time Temp Pulse Resp B/P (MAP) Pulse Ox O2 Delivery O2 Flow Rate FiO2 01/12/23 12:18 90 01/12/23 12:09 36.7 16 105/71 (82) 96 Room Air 01/12/23 03:20 0.00 0.00 01/10/23 15:22 21 Capillary Refill : Less Than 3 Seconds General Appearance: No Apparent Distress, WD/WN Respiratory: Lungs Clear, No Respiratory Distress Cardiovascular: Regular Rate, Rhythm, No Murmur Gastrointestinal: Normal Bowel Sounds, Soft Extremity: Normal Inspection, No Pedal Edema Neurologic/Psychiatric: Alert, Normal Mood/Affect Skin: Normal Color, Warm/Dry Results/Procedures Lab Patient resulted labs reviewed. Assessment/Plan Assessment and Plan Assess & Plan/Chief Complaint Sepsis, present on arrival MRSA bacteremia PNA MRSA UTI Methamphetamine abuse IV drug abuse IVC thrombosis IVC filter present Blood cultures with persistent Staph aureus bacteremia Latest blood cultures with no growth to date Echo without evidence of endocarditis, IVC thrombus present Continue Vancomycin IDSA guidelines recommend IV antibiotics for at least 2 weeks, day 14 01/13 Unable to complete outpatient due to high risk with IV drug abuse Eliquis Diagnosis/Problems Diagnosis/Problems (1) Sepsis Status: Acute (2) MRSA bacteremia Status: Acute (3) UTI (urinary tract infection) Status: Acute (4) PNA (pneumonia) Status: Acute (5) IV drug abuse Status: Acute (6) Methamphetamine abuse Status: Acute (7) IVC thrombosis Status: Acute (8) Presence of IVC filter Status: Chronic MALACHI AGUIRRE MD Jan 12, 2023 13:41
[2023-01-12 16:15] VITALS: BP 115/76
[2023-01-12 20:16] VITALS: BP 115/70
[2023-01-12] MEDS: ZOLPIDEM 5 MG (AMBIEN) TAB PO SCH (20:26)
[2023-01-12 23:50] VITALS: BP 107/60
[2023-01-13 04:42] VITALS: BP 93/54
[2023-01-13] MEDS: VANCOMYCIN 1 GM/NS 250 ML IVPB IV SCH ×2 (04:43)
[2023-01-13 07:50] VITALS: BP 115/75
--- NOTE | 2023-01-13 08:44 | Cardiology Progress Note ---
Subjective Date Seen by Provider: Jan 13, 2023 Time Seen by Provider: 08:30 Subjective/Events-last exam Patient is seated comfortably in wheelchair at time of evaluation. The patient states he has no complaints. He endorses chest pain with deep inspirations but notes it is significantly improved since his arrival to the hospital. The patient denies any palpitations, shortness of breath, lightheadedness, or dizziness. Review of Systems General: No Chills, No Fatigue HEENT: No Head Aches Pulmonary: No Dyspnea, No Cough; Pleuritic Chest Pain Cardiovascular: No: Chest Pain, Palpitations Gastrointestinal: No: Abdominal Pain Musculoskeletal: No: back pain Objective-Cardiology Exam Last Set of Vital Signs Vital Signs 01/10/23 01/13/23 01/13/23 01/13/23 15:22 04:42 07:50 08:00 Temp 36.4 Pulse 81 Resp 18 B/P (MAP) 115/75 (88) Pulse Ox 97 O2 Delivery Room Air O2 Flow Rate 0.00 0.00 FiO2 21 I&O Intake and Output 01/12/23 23:59 Intake Total 2050 ml Balance 2050 ml Intake Oral 2050 ml # Voids 13 # Bowel Movements 3 General: Alert, Oriented X3, Cooperative, No Acute Distress HEENT: Atraumatic, PERRLA Neck: +2 Carotid Pulse No Bruit Lungs: Clear to Auscultation, Normal Air Movement Heart: Regular Rate, Normal S1, Normal S2 Abdomen: No Tenderness Extremities: No Edema, Other (Left BKA) Skin: No Rashes, No Significant Lesion Neuro: Normal Speech Psych/Mental Status: Mental Status NL, Mood NL A/P-Cardiology Admission Diagnosis Sepsis with staph bacteremia IVC thrombosis Hypokalemia Pneumonia Constipation IV drug use Assessment/Plan Sepsis with staph bacteremia Currently on IV antibiotics, managed by internal medicine. Blood cultures are negative at this time. LESLIE was done on 01/02 for concern for endocarditis. 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 IVC filter present on CTA, but patient does not recall having the filter placed. Started on Eliquis 10 mg twice daily, continue on 5 mg twice daily after a total of 21 days of the 10 mg Patient will need follow-up with vascular surgery as an outpatient for IVC filter extraction Pneumonia, managed by internal medicine. Constipation, managed by general surgery. History of IV methamphetamine use. Patient is being leaving AMA today according to medicine. Supervisory-Addendum Brief Verification & Attestation Participated in pt care: history, MDM, physical Personally performed: exam, history, MDM, supervision of care Care discussed with: Medical Student Procedures: n/a Results interpretation: Verified all documentation Verification and Attestation of Medical Student E/M Service A medical student performed and documented this service in my presence. I rev iewed and verified all information documented by the medical student and made modifications to such information, when appropriate. I personally performed the physical exam and medical decision making. Patient was seen at bedside, laying down comfortably, anxious to go home Blood culture reportedly negative He will need to follow-up with vascular surgery as an outpatient for IVC filter extraction Management per medical service I will sign off at this point. Chen Hampton, Jan 13, 2023,11:46 HELIO STEINBERG Jan 13, 2023 08:44 CHEN HAMPTON MD Jan 13, 2023 11:46
[2023-01-13] MEDS: NICOTINE 14 MG PATCH TD SCH (08:54)
[2023-01-13] MEDS: DOCUSATE SODIUM 100 MG CAPSULE PO SCH (08:55)
[2023-01-13] MEDS: NICOTINE PATCH REMOVAL TP SCH (08:55)
[2023-01-13] MEDS: APIXABAN 5 MG TABLET PO SCH (08:55)
[2023-01-13] MEDS: CELECOXIB 100 MG CAPSULE PO SCH (08:55)
[2023-01-13] MEDS ORDERED: APIX5TAB PO (11:36)
[2023-01-13] MEDS ORDERED: SULF-221 PO (11:36)
--- NOTE | 2023-01-13 11:51 | Discharge Inst-Simple/Standard ---
Discharge Inst-Standard Discharge Medications New, Converted or Re-Newed RX: Transmitted to Pharmacy Patient Instructions/Follow Up Plan of Care/Instructions/FU: Please continue to take your medications as written. Please follow up with your primary care doctor to follow up this hospital stay. Activity as Tolerated: Yes Discharge Diet: No Restrictions Return to The Hospital For: Chest pain, shortness of breath, fever, weakness, if you feel you are getting worse. GORDO BISWAS MD Jan 13, 2023 11:51
--- NOTE | 2023-01-13 12:36 | Discharge Summary ---
YANI HOWELL 01/13/23 1236: Diagnosis/Chief Complaint Date of Admission Dec 31, 2022 at 09:36 Date of Discharge 01/13/2023 Discharge Date: Jan 13, 2023 Discharge Time: 12:23 Admission Diagnosis sepsis Primary Care No,Local Physician Discharge Diagnosis Sepsis with staph bacteremia, IVC thrombus, pneumonia, constipation (1) Sepsis Status: Acute (2) MRSA bacteremia Status: Acute (3) UTI (urinary tract infection) Status: Acute (4) PNA (pneumonia) Status: Acute (5) IV drug abuse Status: Acute (6) Methamphetamine abuse Status: Acute (7) IVC thrombosis Status: Acute (8) Presence of IVC filter Status: Chronic Discharge Summary Discharge Physical Exam Allergies: Coded Allergies: No Known Drug Allergies (Unverified , 12/30/22) Vitals & I&Os Vital Signs Date Time Temp Pulse Resp B/P (MAP) Pulse Ox O2 Delivery O2 Flow Rate FiO2 01/13/23 12:55 36.4 81 18 115/75 97 Room Air 0.00 01/10/23 15:22 21 General Appearance: No Apparent Distress, WD/WN HEENT: PERRL/EOMI, TMs Normal Respiratory: Chest Non Tender, No Accessory Muscle Use, No Respiratory Dist ress, Crackles Cardiovascular: Regular Rate, Rhythm, No Gallop, No JVD, No Murmur, Normal Peripheral Pulses Gastrointestinal: Normal Bowel Sounds, Soft, Tenderness (ruq, worse with palpation and inhalation) Extremity: No Calf Tenderness, Other (L BKA) Skin: Normal Color, Warm/Dry Neurologic/Psychiatric: Alert, Oriented x3, No Motor/Sensory Deficits, Normal Mood/Affect Hospital Course Pt is a 47 y/o male who presented to the ER on 12/30/2022 with back/R flank pain that gradually moved into the RUQ. He states that his pain worsened when taking a deep breath and it is very intense when he coughs. He reports a mostly nonproductive, infrequent cough. Last BM was 5 days ago which he states is normal for him, he has long struggled with constipation. He is a current tobacco smoker (alternating how much 2ppd-1 ppd to a few cigarettes per day) since the age of 16. 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 Found to have a leukocytosis, staph bacteremia, R upper lobe pneumonia, and constipation. Started on IV antibiotics for the pneumonia and staph infection. Also had a LESLIE done to visualize heart valves- no vegetations found but did note an IVC thrombus and a IVC filter in place (patient is unsure about when and for what reason it was placed). Given multiple medications to aid in having a bowel movement and now is having bowel movements daily although he still notes RUQ pain. Blood cultures were taken to make sure staph bacteremia was resolving, first cultures were still positive likely d/t subtherapeutic vanc levels and repeat cultures were taken which were negative after adjusting dosing. Day 14 of IV vancomycin treatment following clear blood cultures would be this Wednesday 01/17 however patient has elected to leave AMA. Will send oral antibiotics to pharmacy for use at home Labs (last 24 hrs) Microbiology 01/03/23 Blood Culture - Final, Complete 01/02/23 MRSA Screen - Final, Complete MRSA not isolated 12/30/22 Urine Culture - Final, Complete Staphylococcus aureus Mixed Bacterial Pau Patient resulted labs reviewed. Discharge Home Medications: Active Scripts Active Bactrim Ds Tablet (Sulfamethoxazole/Trimethoprim) 800 Mg-160 Mg Tablet 1 Each PO BID Eliquis (Apixaban) 5 Mg Tablet 5 Mg PO BID Instructions to patient/family Please see electronic discharge instructions given to patient. GORDO CALERO MD 01/13/23 1454: Discharge Summary Discharge Physical Exam Allergies: Coded Allergies: No Known Drug Allergies (Unverified , 12/30/22) Hospital Course Patient was admitted to the hospital secondary to intractable abdominal pain with leukocytosis and was subsequently found to have MRSA bacteremia. Imaging revealed significant constipation and he did start on bowel regimen which improved his abdominal pain. Surgery was initially consulted but recommended outpatient follow-up. His blood cultures were positive for MRSA. Cardiology was consulted given his history of IV drug abuse and need to evaluate for endocarditis. He had a negative LESLIE but was found to have a IVC thrombus. He was started on therapeutic Eliquis. Repeat blood cultures became negative on January 03. He was treated with IV vancomycin throughout his entire admission. Recommendations were made clear to him that he should stay in the hospital to be treated with IV antibiotics until 14 days after negative blood culture but he was unwilling to stay. I did prescribe him oral antibiotics per his s ensitivities and Eliquis to best attempt to treat his infection as an outpatient though made it clear to him that this was suboptimal. He was advised to follow- up with [facility] as he has seen them in the past for continued management of his multiple medical problems and ultimate need for likely IVC filter removal and repeat CT chest to follow-up on nodules noted on present ation. Discussion & Recommendations Discharge Planning: >30 minutes discharge planning Supervisory-Addendum Brief Verification & Attestation Participated in pt care: history, MDM, physical Personally performed: exam, history, MDM, supervision of care Care discussed with: Medical Student Procedures: n/a Results interpretation: Verified all documentation Verification and Attestation of Medical Student E/M Service A medical student performed and documented this service in my presence. I reviewed and verified all information documented by the medical student and made modifications to such information, when appropriate. I personally performed the physical exam and medical decision making. Gordo Calero, Jan 13, 2023,14:50 Problem Qualifiers (1) Sepsis: Sepsis type: methicillin resistant Staphylococcus aureus Sepsis acute organ dysfunction status: without acute organ dysfunction Qualified Codes: A41.02 - Sepsis due to methicillin resistant Staphylococcus aureus YANI HOWELL Jan 13, 2023 12:36 GORDO CALERO MD Jan 13, 2023 14:54
[2023-01-13 12:55] VITALS: BP 115/75
== END 2023-01-13 12:55 | disposition home or self-care (01) | DRG 871 ==
LOC: EDUNIT# 12:41 → ER 12:45 → 4TH 17:59 → UNDOADMOB 17:59 → 4TH 18:27 → INTOOBSV 12-31 09:36 → OBSVTOIN 12-31 09:36 → UNDODISIN 01-13 12:55
PROVIDERS: ADMIT Family Medicine; ATTEND Internal Medicine
DX: A41.02 Sepsis due to Methicillin resistant Staphylococcus aureus (principal); I82.220 Acute embolism and thrombosis of inferior vena cava; J15.212 Pneumonia due to Methicillin resistant Staphylococcus aureus; N39.0 Urinary tract infection, site not specified; K59.00 Constipation, unspecified; F15.10 Other stimulant abuse, uncomplicated; F17.210 Nicotine dependence, cigarettes, uncomplicated; K21.9 Gastro-esophageal reflux disease without esophagitis; Z89.512 Acquired absence of left leg below knee; I25.10 Atherosclerotic heart disease of native coronary artery without angina pectoris; E87.6 Hypokalemia; Z66 Do not resuscitate; Z11.52 Encounter for screening for COVID-19
CPT/HCPCS: 36415; 71045; 71275; 74174; 76705; 80048; 80053; 80202; 81000; 83605; 83690; 83735; 83880; 84484; 85007; 85025; 85027; 85379; 87040; 87077; 87081; 87088; 87186; 87636; 93005; 93041; 93306; 93312; 94760; 96361; 96365; 96375; 96376; G0378